=== PATIENT | male | born 1950 | race African-American/Black ===

== ENCOUNTER 2017-04-14 16:34 | Inpatient (IN) | payer OTHER ==
[~2017-04-14] VITALS: Ht 175.3 cm; Wt 96.9 kg
--- NOTE | 2017-04-14 18:36 | DIAGNOSTIC IMAGING REPORT ---
CHEST ONE VIEW PORTABLE CLINICAL HISTORY: Shortness of breath COMPARISON STUDY: No previous studies for comparison. FINDINGS: The heart is borderline enlarged. There is no failure. There is no focal pulmonary consolidation. There are no pleural effusions.[ IMPRESSION: No active disease in the chest. Electronically signed by: Sebastián Gabriel M.D. 04/14/2017 6:34 PM Dictated Date/Time: 04/14/2017 6:34 PM
[2017-04-14] MEDS ORDERED: PYRI100T4 PO (18:49)
[2017-04-14] MEDS ORDERED: METO25TA56 PO (18:49)
[2017-04-14] MEDS ORDERED: CYAN100048 SQ (18:49)
[2017-04-14] MEDS ORDERED: ACET325T96 PO (18:49)
[2017-04-14] MEDS ORDERED: [UNRECOGNIZED DRUG - CODE] INJ (18:49)
[2017-04-14] MEDS ORDERED: FURO20TA PO (18:49)
[2017-04-14] MEDS ORDERED: EPGI40M SQ (18:49)
[2017-04-14] MEDS ORDERED: TAMS0.4C38 PO (18:58)
[2017-04-14 19:11] LABS: BASO % 0.3 %; BASO ABS # 0.06 K/uL (0-0.2); EOS % 1.2 %; HEMATOCRIT 22.9 % (42-52); IG% 1.5 %; LYMPH % 13.2 %; LYMPH ABS # 2.55 K/uL (1.2-3.4); MEAN CELL VOLUME 107.5 fL (80-100); MEAN CORPUSCULAR HEMOGLOBIN 35.7 pg (25-34); MEAN CORPUSCULAR HGB CONC 33.2 g/dl (32-36); MEAN PLATELET VOLUME 10.3 fL (7.4-10.4); MONO % 2.7 %; NEUT % 81.1 %; PLATELET COUNT 428 K/uL (130-400); RED BLOOD COUNT 2.13 M/uL (4.7-6.1); WHITE BLOOD COUNT 19.35 K/uL (4.8-10.8)
[2017-04-14 19:16] LABS: BUN/CREATININE RATIO 14.8 (10-20); CALCIUM 8.8 mg/dl (8.5-10.1); CREATININE 0.84 mg/dl (0.60-1.40); POTASSIUM 3.9 mmol/L (3.5-5.1)
[2017-04-14 19:22] LABS: INR 1.1 (0.9-1.1); PARTIAL THROMBOPLASTIN RATIO 0.9; PROTHROMBIN TIME (PATIENT) 11.5 SECONDS (9.0-12.0)
--- NOTE | 2017-04-14 19:22 | EMERGENCY ROOM VISIT NOTE ---
History Report prepared by Sheri: Viktoriya Beltran Under the Supervision of: Dr. Owen Hurt M.D. First contact with patient: 18:12 Chief Complaint: ABNORMAL LABS Stated Complaint: ANEMIA History of Present Illness The patient is a 66 year old male who presents to the Emergency Room after having abnormal lab testing two days ago. The patient is currently incarcerated. Per notes from senior living, the patient was seen today by Dr. Wolff of oncology for an oncology review. The patient has a history of MDS, COPD, and CHF. He is dependent on EPO and Neupogen twice weekly. [place] WBC was 92501, platelets were 466, and hemoglobin was 7.4. He was sent to the ED for a possible transfusion. The patient states that he has had transfusions in the past. He denies fevers or rectal bleeding or black stool. He does report feeling lightheaded recently. He does complain of some shortness of breath but denies any chest discomfort. Source of History: patient, treating provider Onset: PST MANAGER Position: other (global) Symptom Intensity: hemoglobin 7.4 Timing: constant Associated Symptoms: + SOB, No fevers, No chest pain, No abdominal pain, No melena, No hematochezia Note: Pt notes lightheadedness. Pt denies rectal bleeding. Review of Systems See HPI for pertinent positives & negatives. A total of 10 systems reviewed and were otherwise negative. Past Medical & Surgical Medical Problems: (1) CHF (congestive heart failure) (2) COPD (chronic obstructive pulmonary disease) (3) MDS (myelodysplastic syndrome) Family History No pertinent history stated. Social History Smoking Status: Never Smoker Housing Status: other (incarcerated) Occupation Status: other (incarcerated) Current/Historical Medications Scheduled Cyanocobalamin (Vitamin B-12), 1,000 MCG SQ MONTHLY Epoetin Berto (Procrit), 40,000 UNITS SQ WK Filgrastim (Neupogen), 480 MCG INJ 2XWK Furosemide (Lasix), 20 MG PO DAILY Metoprolol Tartrate (Lopressor) (Lopressor), 25 MG PO BID Pyridoxine (Vitamin B6), 200 MG PO DAILY Tamsulosin Hcl (Flomax), 0.4 MG PO PM Scheduled PRN Acetaminophen Tab (Tylenol), 650 MG PO TID PRN for Allergies Coded Allergies: No Known Allergies (Unverified , 04/14/17) Physical Exam Vital Signs Date Time Temp Pulse Resp B/P (MAP) Pulse Ox O2 Delivery O2 Flow Rate FiO2 04/14/17 19:06 72 04/14/17 18:36 78 16 121/56 98 Room Air 04/14/17 16:49 37.0 80 20 147/81 98 Room Air Physical Exam Constitutional: Vital signs reviewed. Eyes: Pupils are equal round reactive to light. Conjunctiva are noninjected. ENT: Pharynx is clear without erythema or exudate. Mucous membranes are moist. Neck supple without meningeal signs. Respiratory: Clear to auscultation bilaterally. Breath sounds are equal bilaterally. Cardiovascular: Regular rate and rhythm. No rubs or gallops. GI: Soft, nondistended and nontender. Bowel sounds are present. Musculoskeletal: No peripheral edema. No lower extremity tenderness. Integumentary: No cyanosis. Neurological: The patient is awake and alert. No focal deficits. Psychiatric: Normal affect. Medical Decision & Procedures ER Provider Diagnostic Interpretation: Radiology results as stated below per my review and the radiologist's interpretation: CHEST ONE VIEW PORTABLE CLINICAL HISTORY: Shortness of breath COMPARISON STUDY: No previous studies for comparison. FINDINGS: The heart is borderline enlarged. There is no failure. There is no focal pulmonary consolidation. There are no pleural effusions.[ IMPRESSION: No active disease in the chest. Electronically signed by: Sebastián Gabriel M.D. 04/14/2017 6:34 PM Dictated Date/Time: 04/14/2017 6:34 PM Laboratory Results 04/14/17 18:20 Red Blood Count 2.13, Mean Corpuscular Volume 107.5, Mean Corpuscular Hemoglobin 35.7, Mean Corpuscular Hemoglobin Concent 33.2, Mean Platelet Volume 10.3, Neutrophils (%) (Auto) 81.1, Lymphocytes (%) (Auto) 13.2, Monocytes (%) ( Auto) 2.7, Eosinophils (%) (Auto) 1.2, Basophils (%) (Auto) 0.3, Neutrophils # ( Auto) 15.69, Lymphocytes # (Auto) 2.55, Monocytes # (Auto) 0.53, Eosinophils # ( Auto) 0.23, Basophils # (Auto) 0.06 04/14/17 18:20 Test 04/14/17 18:04/14/17 18:37 White Blood Count 19.35 K/uL (4.8-10.8) Red Blood Count 2.13 M/uL (4.7-6.1) Hemoglobin 7.6 g/dL (14.0-18.0) Hematocrit 22.9 % (42-52) Mean Corpuscular Volume 107.5 fL (80-100) Mean Corpuscular Hemoglobin 35.7 pg (25-34) Mean Corpuscular Hemoglobin Concent 33.2 g/dl (32-36) Platelet Count 428 K/uL (130-400) Mean Platelet Volume 10.3 fL (7.4-10.4) Neutrophils (%) (Auto) 81.1 % Lymphocytes (%) (Auto) 13.2 % Monocytes (%) (Auto) 2.7 % Eosinophils (%) (Auto) 1.2 % Basophils (%) (Auto) 0.3 % Neutrophils # (Auto) 15.69 K/uL (1.4-6.5) Lymphocytes # (Auto) 2.55 K/uL (1.2-3.4) Monocytes # (Auto) 0.53 K/uL (0.11-0.59) Eosinophils # (Auto) 0.23 K/uL (0-0.5) Basophils # (Auto) 0.06 K/uL (0-0.2) RDW Standard Deviation 83.0 fL (36.4-46.3) RDW Coefficient of Variation 23.2 % (11.5-14.5) Immature Granulocyte % (Auto) 1.5 % Immature Granulocyte # (Auto) 0.29 K/uL (0.00-0.02) Nucleated RBC Absolute Count (auto) 0.09 K/uL (0-0) Nucleated Red Blood Cells % 0.5 % Anion Gap 4.0 mmol/L (3-11) Est Creatinine Clear Calc Drug Dose 98.0 ml/min Estimated GFR () 105.0 Estimated GFR (Non- 90.6 BUN/Creatinine Ratio 14.8 (10-20) Calcium Level 8.8 mg/dl (8.5-10.1) Total Bilirubin 1.0 mg/dl (0.2-1) Direct Bilirubin 0.3 mg/dl (0-0.2) Aspartate Amino Transf (AST/SGOT) 10 U/L (15-37) Alanine Aminotransferase (ALT/SGPT) 16 U/L (12-78) Alkaline Phosphatase 63 U/L (45-117) Pro-B-Type Natriuretic Peptide 588 pg/ml (0-900) Total Protein 7.4 gm/dl (6.4-8.2) Albumin 4.0 gm/dl (3.4-5.0) Bedside Troponin I < 0.030 ng/ml (0-0.045) Laboratory results as reviewed by me. ECG Indication: SOB/dyspnea Rate (beats per minute): 74 Rhythm: normal sinus Findings: no acute ischemic change, no ectopy ED Course 1811: The patient was evaluated in room C8. A complete history and physical exam was performed. 1826: I spoke with GUERRERO Echeverria. We discussed the patients case. The patient will be evaluated by the [facility] for further management. 1831: I reassessed the patient at this time. He is feeling better and resting comfortably. I discussed the results and treatment plan with the patient. I answered all pertaining questions that he had. He expressed understanding and verbalized agreement. Medical Decision This is a 66-year-old male who presents with abnormal test results and shortness of breath. Differential diagnosis includes CHF exacerbation, COPD exacerbation, pneumonia, anemia, pancytopenia. I did perform a limited focused review of portions of the patient's old chart on the electronic medical record. The patient has had no prior visits to this hospital. I did evaluate the patient as noted above. The patient is presenting here with abnormal test results. I did review the test results from the present. There were drawn 2 days ago. He has a hemoglobin of 7.4. He has had myelodysplastic syndrome and is on erythropoietin as well as Neupogen. He does complain of some shortness of breath. IV access was established. The patient was placed on a continuous senior network security engineer. I did order and personally review the patient' s 12-lead EKG and chest x-ray as described above. I did order and review the patient's blood work as noted in the electronic medical record. His hemoglobin is 7.6. He does have symptomatic anemia likely need transfusion. I did discuss the case with the hospitalist and disability case manager. Medication Reconcilliation Current Medication List: was personally reviewed by me Blood Pressure Screening Patient's blood pressure: Elevated blood pressure Blood pressure disposition: Referred to PCP Consults Time Called: 1823 Consulting Physician: GUERRERO Echeverria Returned Call: 1826 I spoke with GUERRERO Echeverria. We discussed the patients case. The patient will be evaluated by the [facility] for further management. Impression Primary Impression: Symptomatic anemia Additional Impressions: Dyspnea MDS (myelodysplastic syndrome) Scribe Attestation The scribe's documentation has been prepared under my direct and personally reviewed by me in its entirety. I confirm that the note above accurately reflects all work, treatment, procedures, and medical decision making performed by me. Departure Information Dispostion Being Evaluated By Hospitalist Patient Instructions My [facility] Problem Qualifiers Additional Impressions: Dyspnea Dyspnea type: dyspnea on exertion Qualified Codes: R06.09 - Other forms of dyspnea
[2017-04-14 19:41] LABS: ANISOCYTOSIS PRESENT; COMPLETE YES; OVALOCYTES 1+; SCHISTOCYTES OCCASIONAL; TEAR DROP CELLS 1+
[2017-04-14] MEDS ORDERED: TRAMADOL HCL 50 MG TAB PO PRN (21:15)
[2017-04-14] MEDS ORDERED: ACETAMINOPHEN 325 MG TAB PO PRN (21:15)
[2017-04-14] MEDS ORDERED: ONDANSETRON INJ 2 MG/ML 2 ML VIAL IV PRN (21:15)
[2017-04-14 23:45] VITALS: BP 137/71; PULSE 74; TEMP 36.8; O2SAT 98; Ht 175.3 cm; Wt 96.9 kg
[2017-04-14 23:59] VITALS: BP 109/67; PULSE 76; TEMP 37; O2SAT 96
[2017-04-15] VITALS (16 sets, daily range): BP systolic 103–129; BP diastolic 63–74; PULSE 68–79; TEMP 36.8–37.2; O2SAT 95–98
[2017-04-15] MEDS ORDERED: INFLUENZA VIRUS QUAD VACCINE 0.5 ML SYR IM. ONE (01:45)
[2017-04-15] MEDS ORDERED: INFLUENZA ADMINISTRATION CHARGE ONE (01:45)
--- NOTE | 2017-04-15 04:18 | HISTORY & PHYSICAL EXAMINATION ---
DATE OF ADMISSION: 04/14/2017 PRIMARY CARE PHYSICIAN: EMELINA Bailey. CHIEF COMPLAINT: Anemia. HISTORY OF PRESENT ILLNESS: History obtained from patient and records. Medical history significant for myelodysplastic syndrome, chronic anemia, (baseline hemoglobin of 8.8 to 9.8), hypertension, BPH, reflux. A few days ago, the patient had routine outpatient lab work for myelodysplastic syndrome. Hemoglobin noted to be 7.4. Patient admits to some shortness of breath on exertion. Denies black bloody stools or abdominal pain. [facility]cult done at the [facility] was negative as per patient. Patient sent to the Emergency Room for possible blood transfusion. MEDICAL HISTORY: As above. SURGERIES: None. HOME MEDICATIONS: Include Flomax, vitamin B12, Procrit, Neupogen, Lasix, Lopressor, Tylenol. ALLERGIES: No known drug allergies. FAMILY HISTORY: Hypertension. PERSONAL AND SOCIAL HISTORY: nonsmoker, no chronic intake of alcoholic beverages, inmate. -[place] ethnicity. REVIEW OF SYSTEMS: As per HPI, all 10 systems reviewed. All other ROS negative. PHYSICAL EXAMINATION: VITAL SIGNS: Blood pressure was noted to be 170/80, later 107/71, pulse rate of 74, RR 18, temperature 37 O2 96RA. GENERAL: Comfortable, pleasant, looks younger for stated age. SKIN: Pallor, warm. HEENT: Pale palpebral conjunctive . No ptosis. Dry buccal mucosa. NECK: No JVD. Supple. No tenderness. CHEST: Clear to auscultation. No tenderness. HEART: Regular rate and rhythm, no murmur. ABDOMEN: Soft, nontender. EXTREMITIES: No edema. No gross deformities. No tenderness. NEUROLOGIC: Coherent. No gross focality. LABORATORY DATA: Hemoglobin was noted to be 7.6, hematocrit 22.1, white count 19, platelet count 428 . Sodium 136, potassium 3.6, chloride 104, CO2 28, BUN 12, creatinine 0.8, glucose was noted to be 80. Troponin 0 Chest x-ray showed no active disease. EKG as per my interpretation rate 75, normal sinus rhythm, no ischemia. ASSESSMENT: 1. Symptomatic anemia secondary to hemoglobin drop from baseline history of myelodysplastic syndrome. 2. Hypertension, stable. 3. Benign prostatic hypertrophy, stable on medication. PLAN: GMF transfuse packed RBCs to maintain hemoglobin greater than 8.5. Home tomorrow morning if hemoglobin stable. DVT prophylaxis, SCDs RE anemia Full code. MTDD
[2017-04-15 08:36] LABS: BASO % 0.3 %; BASO ABS # 0.06 K/uL (0-0.2); EOS % 0.8 %; IG% 1.2 %; LYMPH % 10.8 %; LYMPH ABS # 2.25 K/uL (1.2-3.4); MEAN CELL VOLUME 102.7 fL (80-100); MEAN CORPUSCULAR HEMOGLOBIN 34.6 pg (25-34); MEAN CORPUSCULAR HGB CONC 33.7 g/dl (32-36); MEAN PLATELET VOLUME 9.8 fL (7.4-10.4); MONO % 1.8 %; NEUT % 85.1 %; PLATELET COUNT 344 K/uL (130-400); RED BLOOD COUNT 2.63 M/uL (4.7-6.1); WHITE BLOOD COUNT 20.84 K/uL (4.8-10.8)
[2017-04-15] MEDS ORDERED: FUROSEMIDE 20 MG TAB PO SCH (09:00)
[2017-04-15] MEDS ORDERED: PYRIDOXINE HCL 50 MG TAB PO SCH (09:00)
[2017-04-15] MEDS ORDERED: METOPROLOL TARTRATE 25 MG TAB PO SCH (09:00)
[2017-04-15 09:29] LABS: ANISOCYTOSIS PRESENT; COMPLETE YES; GIANT PLATELETS 1+; HYPOCHROMIA PRESENT; OVALOCYTES 1+; POLYCHROMASIA 1+
--- NOTE | 2017-04-15 11:02 | Progress Note ---
Medicine Progress Note Date & Time of Visit: Apr 15, 2017 at 10:49. Subjective Pt was seen and examined Lying in bed with no distress Pt said that he feels much better Denies any chest pain, palpitation, dizziness and SOB Objective Last 8 Hrs Date Time Temp Pulse Resp B/P (MAP) Pulse Ox O2 Delivery O2 Flow Rate FiO2 04/15/17 07:13 37.2 68 18 116/71 96 04/15/17 07:00 96 Room Air 04/15/17 06:26 37.0 72 18 116/71 96 04/15/17 05:30 36.9 79 18 116/69 97 04/15/17 05:00 37.0 69 18 113/67 97 04/15/17 04:45 36.9 69 18 119/69 97 04/15/17 04:30 36.9 68 18 110/67 97 04/15/17 04:15 37.0 68 18 113/74 95 04/15/17 04:14 36.8 68 16 109/68 (82) 97 Room Air Physical Exam: General- No acute distress Head- atraumatic Eyes- PERRL, EOMI ENT- oropharynx clear Neck- supple, no JVD Lungs- clear to auscultation Heart- regular rhythm; no murmur Abdomen- normal bowel sounds, soft Extremities- no pretibial edema, no calf tenderness Neuro- alert, oriented x 3; PERRL, EOMI; no facial palsy Skin- warm & dry Laboratory Results: Last 24 Hours Test 04/14/17 18:20 04/14/17 18:37 04/15/17 08:22 White Blood Count 19.35 K/uL 20.84 K/uL Red Blood Count 2.13 M/uL 2.63 M/uL Hemoglobin 7.6 g/dL 9.1 g/dL Hematocrit 22.9 % 27.0 % Mean Corpuscular Volume 107.5 fL 102.7 fL Mean Corpuscular Hemoglobin 35.7 pg 34.6 pg Mean Corpuscular Hemoglobin Concent 33.2 g/dl 33.7 g/dl Platelet Count 428 K/uL 344 K/uL Mean Platelet Volume 10.3 fL 9.8 fL Neutrophils (%) (Auto) 81.1 % 85.1 % Lymphocytes (%) (Auto) 13.2 % 10.8 % Monocytes (%) (Auto) 2.7 % 1.8 % Eosinophils (%) (Auto) 1.2 % 0.8 % Basophils (%) (Auto) 0.3 % 0.3 % Neutrophils # (Auto) 15.69 K/uL 17.72 K/uL Lymphocytes # (Auto) 2.55 K/uL 2.25 K/uL Monocytes # (Auto) 0.53 K/uL 0.38 K/uL Eosinophils # (Auto) 0.23 K/uL 0.17 K/uL Basophils # (Auto) 0.06 K/uL 0.06 K/uL RDW Standard Deviation 83.0 fL 83.4 fL RDW Coefficient of Variation 23.2 % 23.9 % Immature Granulocyte % (Auto) 1.5 % 1.2 % Immature Granulocyte # (Auto) 0.29 K/uL 0.26 K/uL Nucleated RBC Absolute Count (auto) 0.09 K/uL 0.07 K/uL Nucleated Red Blood Cells % 0.5 % 0.3 % Anisocytosis PRESENT PRESENT Macrocytosis PRESENT Tear Drop Cells 1+ Ovalocytes 1+ 1+ Schistocytes OCCASIONAL Prothrombin Time 11.5 SECONDS Prothromb Time International Ratio 1.1 Activated Partial Thromboplast Time 23.6 SECONDS Partial Thromboplastin Ratio 0.9 Sodium Level 136 mmol/L Potassium Level 3.9 mmol/L Chloride Level 104 mmol/L Carbon Dioxide Level 28 mmol/L Anion Gap 4.0 mmol/L Blood Urea Nitrogen 12 mg/dl Creatinine 0.84 mg/dl Est Creatinine Clear Calc Drug Dose 98.0 ml/min Estimated GFR () 105.0 Estimated GFR (Non- 90.6 BUN/Creatinine Ratio 14.8 Random Glucose 80 mg/dl Calcium Level 8.8 mg/dl Total Bilirubin 1.0 mg/dl Direct Bilirubin 0.3 mg/dl Aspartate Amino Transf (AST/SGOT) 10 U/L Alanine Aminotransferase (ALT/SGPT) 16 U/L Alkaline Phosphatase 63 U/L Pro-B-Type Natriuretic Peptide 588 pg/ml Total Protein 7.4 gm/dl Albumin 4.0 gm/dl Bedside Troponin I < 0.030 ng/ml Giant Platelets 1+ Polychromasia 1+ Hypochromasia PRESENT Basophilic Stippling 1+ Date/Time Source Procedure Growth Status 04/15/17 00:15 Nasal MRSA DNA Surveillance Screen - Final Specimen Negative for MRSA by DNA Probe Complete Assessment & Plan Symptomatic Anemia Present with SOB with Hb 7.6 Hx of Myelodysplastic anemia Received 2 units PRBC Hb today 9.1 Clinically improved significantly Will check h/h at 1600, if stable will discharge today MDS WBC 20 Continue follow with Oncology Continue outpatient epogen Continue monitor CBC Hypertension Continue metoprolol and lasix stable. Benign prostatic hypertrophy On Flomax DVT prophylaxis SCDs due to anemia low hgb CODE STATUS Full code. Current Inpatient Medications: Current Inpatient Medications Medications (Trade) Dose Ordered Sig/Patricia Route Start Time Stop Time Status Last Admin Dose Admin Acetaminophen (Tylenol Tab) 650 mg Q4H PRN PO 04/14/17 21:15 05/14/17 21:14 Ondansetron HCl (Zofran Inj) 4 mg Q6H PRN IV 04/14/17 21:15 05/14/17 21:14 Tramadol HCl (Ultram Tab) 25 mg Q6H PRN PO 04/14/17 21:15 05/14/17 21:14 Furosemide (Lasix Tab) 20 mg DAILY PO 04/15/17 09:00 05/15/17 08:59 04/15/17 08:05 20 MG Metoprolol Tartrate (Lopressor Tab) 25 mg BID PO 04/15/17 09:00 05/15/17 08:59 04/15/17 08:05 25 MG Pyridoxine HCl (Vitamin B-6 Tab) 200 mg DAILY PO 04/15/17 09:00 05/15/17 08:59 04/15/17 08:05 200 MG Tamsulosin HCl (Flomax Cap) 0.4 mg PM PO 04/15/17 21:00 05/15/17 20:59 Miscellaneous Information (Order Awaiting Action) 1 ea QS N/A 04/15/17 00:00 05/15/17 00:00
[2017-04-15 16:10] LABS: HEMATOCRIT 27.4 % (42-52)
--- NOTE | 2017-04-15 17:45 | Discharge Instructions ---
Discharge Instructions Date of Service Apr 15, 2017. Admission Reason for Admission: Symptomatic Anemia Discharge Discharge Diagnosis / Problem: Anemia Discharge Goals Goal(s): Decrease discomfort, Improve function, Improve disease control Activity Recommendations Activity Limitations: resume your previous activity (as tolerated) . Instructions / Follow-Up Instructions / Follow-Up Follow up with primary care provider Check CBC within 1 week Current Hospital Diet Patient's current hospital diet: AHA Diet (Heart Healthy) Discharge Diet Recommended Diet: AHA Diet (Heart Healthy) Pending Studies Studies pending at discharge: no Medical Emergencies . Who to Call and When: Medical Emergencies: If at any time you feel your situation is an emergency, please call 911 immediately. . Non-Emergent Contact Non-Emergency issues call your: Primary Care Provider Call Non-Emergent contact if: you have any medication questions . . "Provider Documentation" section prepared by Juhi Cotter. . VTE Core Measure Inpt VTE Proph given/why not?: SCD's
[2017-04-15] MEDS ORDERED: TAMSULOSIN HCL 0.4 MG CAP PO SCH (21:00)
--- NOTE | 2017-04-16 07:38 | Discharge Summary ---
Discharge Summary Date of Service Apr 16, 2017. Discharge Summary Admission Date: Apr 14, 2017 at 20:51 Discharge Date: Apr 15, 2017 Principal Diagnosis: Anemia Secondary Diagnoses/Problems: Benign prostatic hypertrophy MDS HTN Procedures: CHEST ONE VIEW PORTABLE CLINICAL HISTORY: Shortness of breath COMPARISON STUDY: No previous studies for comparison. FINDINGS: The heart is borderline enlarged. There is no failure. There is no focal pulmonary consolidation. There are no pleural effusions.[ IMPRESSION: No active disease in the chest. Electronically signed by: Sebastián Gabriel M.D. 04/14/2017 6:34 PM Dictated Date/Time: 04/14/2017 6:34 PM Medication Reconciliation Continued Medications: Acetaminophen Tab (Tylenol) 325 Mg Tab 650 MG PO TID PRN for , TAB Cyanocobalamin (Vitamin B-12) 1,000 Mcg Sub 1000 MCG SQ MONTHLY Epoetin Berto (Procrit) 40,000 [place] 61337 UNITS SQ WK THDAY Filgrastim (Neupogen) 480 Mcg/0.8 Ml Inj 480 MCG INJ 2XWK fri, Furosemide (Lasix) 20 Mg Tab 20 MG PO DAILY, TAB Metoprolol Tartrate (Lopressor) (Lopressor) 25 Mg Tab 25 MG PO BID, TAB Pyridoxine (Vitamin B6) 100 Mg Tab 200 MG PO DAILY, TAB Tamsulosin Hcl (Flomax) 0.4 Mg Cap 0.4 MG PO PM, CAP Admission Information HPI (per Admitting provider): CHIEF COMPLAINT: Anemia. HISTORY OF PRESENT ILLNESS: History obtained from patient and records. Medical history significant for myelodysplastic syndrome, chronic anemia, (baseline hemoglobin of 8.8 to 9.8), hypertension, BPH, reflux. A few days ago, the patient had routine outpatient lab work for myelodysplastic syndrome. Hemoglobin noted to be 7.4. Patient admits to some shortness of breath on exertion. Denies black bloody stools or abdominal pain. Hemoccult done at the detention was negative as per patient. Patient sent to the Emergency Room for possible blood transfusion. Physical Exam (per Admitting): PHYSICAL EXAMINATION: VITAL SIGNS: Blood pressure was noted to be 170/80, later 107/71, pulse rate of 74, RR 18, temperature 37 O2 96RA. GENERAL: Comfortable, pleasant, looks younger for stated age. SKIN: Pallor, warm. HEENT: Pale palpebral conjunctive . No ptosis. Dry buccal mucosa. NECK: No JVD. Supple. No tenderness. CHEST: Clear to auscultation. No tenderness. HEART: Regular rate and rhythm, no murmur. ABDOMEN: Soft, nontender. EXTREMITIES: No edema. No gross deformities. No tenderness. NEUROLOGIC: Coherent. No gross focality Hospital Course Symptomatic Anemia Present with SOB with Hb 7.6 Hx of Myelodysplastic anemia Received 2 units PRBC Hb today 9.1 Clinically improved significantly Will check h/h at 1600, if stable will discharge today MDS WBC 20 Continue follow with Oncology Continue outpatient epogen Continue monitor CBC Hypertension Continue metoprolol and lasix stable. Benign prostatic hypertrophy On Flomax DVT prophylaxis SCDs due to anemia low hgb CODE STATUS Full code. Total time spent on discharge = 35 minutes This includes examination of the patient, discharge planning, medication reconciliation, and communication with other providers. Discharge Instructions Discharge Instructions Date of Service Apr 15, 2017. Admission Reason for Admission: Symptomatic Anemia Discharge Discharge Diagnosis / Problem: Anemia Discharge Goals Goal(s): Decrease discomfort, Improve function, Improve disease control Activity Recommendations Activity Limitations: resume your previous activity (as tolerated) . Instructions / Follow-Up Instructions / Follow-Up Follow up with primary care provider Check CBC within 1 week Current Hospital Diet Patient's current hospital diet: AHA Diet (Heart Healthy) Discharge Diet Recommended Diet: AHA Diet (Heart Healthy) Pending Studies Studies pending at discharge: no Medical Emergencies . Who to Call and When: Medical Emergencies: If at any time you feel your situation is an emergency, please call 911 immediately. . Non-Emergent Contact Non-Emergency issues call your: Primary Care Provider Call Non-Emergent contact if: you have any medication questions . . "Provider Documentation" section prepared by Juhi Cotter. . VTE Core Measure Inpt VTE Proph given/why not?: SCD's
== END 2017-04-15 19:43 | disposition home or self-care (01) | DRG 812 ==
LOC: C.EDB 16:37 → C.MED 20:51 → ENRESERV 21:00 → EDBEDREQ 23:05
PROVIDERS: ADMIT Internal Medicine; ATTEND Internal Medicine
DX: D46.9 Myelodysplastic syndrome, unspecified (principal); I11.0 Hypertensive heart disease with heart failure; I50.9 Heart failure, unspecified; J44.9 Chronic obstructive pulmonary disease, unspecified; N40.0 Benign prostatic hyperplasia without lower urinary tract symptoms; K21.9 Gastro-esophageal reflux disease without esophagitis; Z79.899 Other long term (current) drug therapy

== ENCOUNTER 2017-05-18 18:35 | Inpatient (IN) | payer OTHER ==
[~2017-05-18] VITALS: Ht 175.3 cm; Wt 105.0 kg
[~2017-05-18 18:35] MED LIST: ACET325T96 PO; CYAN100048 SQ; EPGI40M SQ; FURO20TA PO; METO25TA56 PO; PYRI100T4 PO; TAMS0.4C38 PO; [UNRECOGNIZED DRUG - CODE] INJ
[2017-05-18] MEDS ORDERED: SODIUM CHLORIDE 0.9% 1000ML 1,000 ML IV STA (19:09)
--- NOTE | 2017-05-18 19:32 | DIAGNOSTIC IMAGING REPORT ---
CHEST ONE VIEW PORTABLE CLINICAL HISTORY: Weakness. COMPARISON STUDY: Chest radiograph April 14, 2017. FINDINGS: Lung volumes are normal. No pneumothorax or pleural effusion is identified. There is no evidence of pulmonary edema. There is mild cardiomegaly. No consolidation is identified. IMPRESSION: No acute cardiopulmonary findings. Electronically signed by: Vincent Maldonado M.D. 05/18/2017 7:31 PM Dictated Date/Time: 05/18/2017 7:30 PM
[2017-05-18 19:57] LABS: ALBUMIN 3.8 gm/dl (3.4-5.0); CALCIUM 8.6 mg/dl (8.5-10.1); CREATININE 0.83 mg/dl (0.60-1.40); POTASSIUM 3.7 mmol/L (3.5-5.1)
[2017-05-18 20:00] LABS: TOTAL PROTEIN 7.3 gm/dl (6.4-8.2)
[2017-05-18 20:02] LABS: HEMATOCRIT 24.2 % (42-52); HEMOGLOBIN 8.1 g/dL (14.0-18.0); MEAN CELL VOLUME 102.5 fL (80-100); MEAN CORPUSCULAR HEMOGLOBIN 34.3 pg (25-34); MEAN CORPUSCULAR HGB CONC 33.5 g/dl (32-36); MEAN PLATELET VOLUME 8.9 fL (7.4-10.4); NUCLEATED RED BLOOD CELL ABS 0.05 K/uL (0-0); PLATELET COUNT 466 K/uL (130-400); RED CELL DISTRIBUTION WIDTH CV 22.8 % (11.5-14.5); RED CELL DISTRIBUTION WIDTH SD 79.2 fL (36.4-46.3); WHITE BLOOD COUNT 2.59 K/uL (4.8-10.8)
--- NOTE | 2017-05-18 20:08 | EMERGENCY ROOM VISIT NOTE ---
History Report prepared by Sheri: kC Ovalle Under the Supervision of: Dr. Nathaniel Peacock M.D. First contact with patient: 19:03 Chief Complaint: OTHER COMPLAINT Stated Complaint: LOW HEMOGLOBIN, NEEDS POSSIBLE BLOOD TRANSFUSION History of Present Illness The patient is a 66 year old male who presents to the Emergency Room with complaints of decreasing hemoglobin beginning a couple of week sago. The patient reports a history of Myelodysplastic syndrome with associated anemia and neutropenia. He reports he is on Procrit and Neupogen. The patient states that he had a hemoglobin count of less than 8 a couple weeks ago and was sent here for a transfusion. He reports that his hemoglobin count has been declining from 9 to 7.4 since. The patient states that he has been experiencing fatigue, right lower quadrant abdominal pain, and shortness of breath upon exertion. He denies blood in stool, nausea, and vomiting. Source of History: patient Onset: a couple of weeks ago Position: other (global) Quality: other (7.4) Timing: other (decreasing) Modifying Factors (Relieving): other (Procrit, neupogen) Associated Symptoms: + SOB, + abdominal pain, + fatigue, No nausea, No vomiting, No melena, No hematochezia Review of Systems See HPI for pertinent positives and negatives. A total of ten systems were reviewed and were otherwise negative. Past Medical & Surgical Medical Problems: (1) CHF (congestive heart failure) (2) COPD (chronic obstructive pulmonary disease) (3) MDS (myelodysplastic syndrome) (4) Symptomatic anemia (5) Symptomatic anemia Family History Patient reports no known family medical history. Social History Smoking Status: Never Smoker Housing Status: other Occupation Status: other Current/Historical Medications Scheduled Cyanocobalamin (Vitamin B-12), 1,000 MCG SQ MONTHLY Epoetin Berto (Procrit), 40,000 UNITS SQ WK Furosemide (Lasix), 20 MG PO DAILY Metoprolol Tartrate (Lopressor) (Lopressor), 25 MG PO BID Pyridoxine (Vitamin B6), 200 MG PO DAILY Tamsulosin Hcl (Flomax), 0.4 MG PO PM Scheduled PRN Acetaminophen Tab (Tylenol), 650 MG PO TID PRN for Allergies Coded Allergies: No Known Allergies (Unverified , 05/18/17) Physical Exam Vital Signs Date Time Temp Pulse Resp B/P (MAP) Pulse Ox O2 Delivery O2 Flow Rate FiO2 05/18/17 20:11 64 18 121/62 97 Room Air 05/18/17 18:37 36.3 74 20 142/75 100 Room Air Physical Exam GENERAL: Awake, alert, fatigued-appearing, in no distress HENT: Normocephalic, atraumatic. Dry mucous membranes. EYES: Pale conjunctiva. Sclera non-icteric. NECK: Supple. No nuchal rigidity. FROM. No JVD. RESPIRATORY: Clear to auscultation. CARDIAC: Regular rate, normal rhythm. Extremities warm and well perfused. Pulses equal. ABDOMEN: Soft, non-distended. No tenderness to palpation. No rebound or guarding. No masses. RECTAL: Deferred. MUSCULOSKELETAL: Chest examination reveals no tenderness. The back is symmetrical on inspection without obvious abnormality. There is no CVA tenderness to palpation. No joint edema. LOWER EXTREMITIES: Calves are equal size bilaterally and non-tender. No edema. No discoloration. NEURO: Normal sensorium. No sensory or motor deficits noted. SKIN: No rash or jaundice noted. Medical Decision & Procedures ER Provider Diagnostic Interpretation: X-ray: Per my interpretation, radiologist review. CHEST ONE VIEW PORTABLE CLINICAL HISTORY: Weakness. COMPARISON STUDY: Chest radiograph April 14, 2017. FINDINGS: Lung volumes are normal. No pneumothorax or pleural effusion is identified. There is no evidence of pulmonary edema. There is mild cardiomegaly. No consolidation is identified. IMPRESSION: No acute cardiopulmonary findings. Electronically signed by: Vincent Maldonado M.D. 05/18/2017 7:31 PM Dictated Date/Time: 05/18/2017 7:30 PM Laboratory Results 05/18/17 19:25 Test 05/18/17 19:25 Variant Lymphocytes % (manual) 20.7 % Absolute Variant Lymphocytes 0.54 K/uL Blood Smear Review Schistocytes 1+ Anion Gap 3.0 mmol/L (3-11) Est Creatinine Clear Calc Drug Dose 98.7 ml/min Estimated GFR () 105.5 Estimated GFR (Non- 91.0 BUN/Creatinine Ratio 13.3 (10-20) Calcium Level 8.6 mg/dl (8.5-10.1) Total Bilirubin 1.2 mg/dl (0.2-1) Direct Bilirubin 0.3 mg/dl (0-0.2) Aspartate Amino Transf (AST/SGOT) 11 U/L (15-37) Alanine Aminotransferase (ALT/SGPT) 17 U/L (12-78) Alkaline Phosphatase 52 U/L (45-117) Total Protein 7.3 gm/dl (6.4-8.2) Albumin 3.8 gm/dl (3.4-5.0) Lipase 171 U/L (73-393) Laboratory results reviewed by me Medications Administered Medications (Trade) Dose Ordered Sig/Patricia Route Start Time Stop Time Status Last Admin Dose Admin Sodium Chloride 1,000 ml @ 999 mls/hr Q1H1M STAT IV 05/18/17 19:09 05/18/17 20:09 DC 05/18/17 20:27 999 MLS/HR ED Course 1904: The patient was evaluated in room C01B. A complete history and physical exam was performed. 2020: I reevaluated the patient and updated him on his results. I discussed the treatment plan, which he understands and agrees to. The patient will be further evaluated. 2027: I [facility] the patients [facility] understands the patients condition and agrees to accept the patient. The patient will be further evaluated. Medical Decision I reviewed the patient's past medical history, medications, and the nursing notes as described above. The patient's presentation and history were concerning for Anemia due to chronic disease/malignancy, Myelodysplastic worsening syndrome, pneumonia, UTI, dehydration, and electrolyte abnormalities. Patient is a 66-year-old gentleman with a past medical history of myelodysplastic syndrome and associated anemia on Procrit and Neupogen presents to emergency department from [facility] after having surveillance labs showing a hemoglobin of 7.7 down from 9 after being transfused 2 weeks ago in the ED per hpi. The patient is no acute distress, afebrile with stable vital signs. Denies bloody or black stools. Hemoglobin 8.1 today however given the patient's recent value of 7.6 and goal of hemoglobin 8.5 to help minimize symptoms will transfuse. Patient also has persistent neutropenia with ANC of 0.44. Will transfuse with 1 unit of PRBCs that are Leuk-reduced and irradiated. Case discussed with Dr. A[facility] will admit the patient for further management. Medication Reconcilliation Current Medication List: was personally reviewed by me Blood Pressure Screening Patient's blood pressure: Normal blood pressure Consults Time Called: 2023 [facility] Returned Call: 2027 I discussed the patients [facility] He understands the patients condition and agrees to accept the patient. The patient will be further evaluated. Impression Primary Impression: Symptomatic anemia Additional Impression: Neutropenia Critical Care I have personally spent greater than 35 minutes of critical care time in the direct management of this patient. This includes bedside care, interpretation of diagnostic studies, and testing, discussion with consultants, patient, and family members, and other required patient management activities. This 35 minutes is in excess of all separately billable procedures. Scribe Attestation The scribe's documentation has been prepared under my direction and personally reviewed by me in its entirety. I confirm that the note above accurately reflects all work, treatment, procedures, and medical decision making performed by me. Departure Information Dispostion Being Evaluated By Hospitalist Referrals Leo TARANGO (PCP) Patient Instructions [facility] Problem Qualifiers
[2017-05-18 20:56] VITALS: BP 121/62; PULSE 64; TEMP 36.8; O2SAT 97
[2017-05-18 21:10] VITALS: BP 114/65; PULSE 63; TEMP 36.8; O2SAT 97
[2017-05-18] MEDS ORDERED: OPTIRAY 320 IV PRN (21:15)
[2017-05-18] MEDS ORDERED: ACETAMINOPHEN 325 MG TAB PO PRN (21:15)
[2017-05-18] MEDS ORDERED: MoRPHine SULFATE 4 MG/ML 1 ML CARP\\VIAL IV PRN (21:15)
[2017-05-18] MEDS ORDERED: PROCHLORPERAZINE INJ 5 MG in SYRINGE 4 ML IV PRN (21:15)
[2017-05-18] MEDS ORDERED: TRAMADOL HCL 50 MG TAB PO PRN (21:15)
[2017-05-18 21:25] VITALS: BP 115/62; PULSE 62; TEMP 36.9; O2SAT 97
[2017-05-18 21:45] VITALS: BP 123/70; PULSE 67; TEMP 36.8; O2SAT 98
--- NOTE | 2017-05-18 22:27 | DIAGNOSTIC IMAGING REPORT ---
CT OF THE ABDOMEN AND PELVIS WITH CONTRAST CLINICAL HISTORY: Left sided abdominal pain. COMPARISON STUDY: None. TECHNIQUE: Following IV administration of 92 mL of Optiray-320, axial images of the abdomen and pelvis were obtained from the lung bases to the proximal femurs. Images were reviewed in the axial, sagittal, and coronal planes. IV contrast was administered without complication. A dose lowering technique was utilized adhering to the principles of ALARA. CT DOSE: 576.54 mGy.cm FINDINGS: Visualized portions of the lower chest demonstrate mild to moderate cardiomegaly. There is no biliary ductal dilatation status post cholecystectomy. A 9 mm intermediate attenuation inferior right hepatic lobe lesion shown image 37 of 91 is too small to characterize. There is no pancreatic ductal dilatation. No peripancreatic infiltration is present. The size of the spleen is normal. The adrenal glands and kidneys are unremarkable. There is no hydronephrosis. No abdominal or pelvic lymphadenopathy is present. The appendix is normal. Caliber and wall thickness of small and large bowel are normal. There are fat-containing bilateral inguinal hernias as well as a fat-containing umbilical hernia and fat-containing periumbilical hernias. No suspicious osseous lesions are present. Major vasculature of the abdomen and pelvis is patent. There is no hemoperitoneum. No retroperitoneal hematoma is identified. IMPRESSION: 1. No acute process within the abdomen or pelvis. 2. Mild to moderate cardiomegaly. 3. 9 mm intermediate attenuation right hepatic lobe lesion which is too small to characterize. 4. No biliary ductal dilatation status post cholecystectomy. Electronically signed by: Vincent Maldonado M.D. 05/18/2017 10:25 PM Dictated Date/Time: 05/18/2017 10:17 PM
[2017-05-18] MEDS ORDERED: NSS + 20MEQ KCL 1000ML 1,000 ML IV SCH (22:30)
[2017-05-18 22:44] VITALS: BP 116/68; PULSE 69; TEMP 36.7; O2SAT 97
[2017-05-18 22:46] VITALS: Ht 175.3 cm; Wt 105.0 kg
[2017-05-18] MEDS ORDERED: NSS + 20MEQ KCL 1000ML 1,000 ML IV ONE (23:00)
--- NOTE | 2017-05-19 01:31 | HISTORY & PHYSICAL EXAMINATION ---
DATE OF ADMISSION: 05/18/2017 PRIMARY CARE PHYSICIAN: EMELINA Bailey. CHIEF COMPLAINT: Anemia. HISTORY OF PRESENT ILLNESS: History obtained from patient and records. Medical history significant for myelodysplastic syndrome, chronic anemia (baseline hemoglobin of 9), hypertension, BPH, reflux. Recent confinement last April 2017 for symptomatic anemia. Patient transfused 2 units packed RBC. Hemoglobin on discharge was 9.1. Patient recently saw tassel maker from [facility] outpatient a few days ago. Lab work as of 05/14/2017 showed a hemoglobin of 7.6. As per outpatient note, patient was having difficulty Hg maintaining despite Procrit. Neupogen was held to see if this would help maintain hemoglobin. As per outpatient notes, elevated platelet count, RDW, total bilirubin, concern for hemolysis versus PUSHPA as per note . Patient admits to increasing shortness of breath on exertion. No chest pain or cough symptoms. Patient complaining of achy left-sided abdominal pain, no black, no bloody stools, no emesis, no fever, no chills, denies diarrhea/dysuria. Patient complaining of bilateral leg pain, intermittent swelling. At the Emergency Room, hemoglobin noted to be 8.1, 1 unit of packed RBC transfusion started. MEDICAL HISTORY: As above. SURGERIES: Urologic procedures, cholecystectomy. HOME MEDICATIONS: Include Tylenol, vitamin B12, Procrit, Lasix, Lopressor, vitamin B6. ALLERGIES: No known drug allergies. FAMILY HISTORY: Hypertension. PERSONAL AND SOCIAL HISTORY: Nonsmoker. No chronic intake of alcoholic beverages. half-way inmate, -[place]izen [place] ethnicity. REVIEW OF SYSTEMS: As per HPI, all 10 systems reviewed. All other ROS negative. PHYSICAL EXAMINATION: VITAL SIGNS: Blood pressure was noted to be 114/65, pulse 60, RR 18, temperature 36.8, sats 97 on room air. GENERAL: Noted to be comfortable, no respiratory distress. SKIN: Pallor, warm. HEENT: Alopecia. Pale palpebral conjunctivae. No ptosis. Dry buccal mucosa. NECK: No JVD. Supple. No tenderness. CHEST: Clear, no tenderness. HEART: Regular, no murmur. ABDOMEN: Soft, nontender. RECTAL: Intact sphincter, yellow stool, heme negative. EXTREMITIES: No edema, minimal LE tenderness. No gross deformity. NEUROLOGIC: Coherent. No gross focality. LABORATORY DATA: Hemoglobin was noted to be 8.1, hematocrit 34.2, white cell count 2.59, platelets 466. Sodium 136, potassium 3.7, chloride 105, CO2 of 28, BUN 11, creatinine 0.8, glucose 104, total bilirubin was 1.2, direct bilirubin 0.3. Chest x-ray, no acute pathology. CT abdomen and pelvis showed no acute process, cardiomegaly, right hepatic lobe lesion. ASSESSMENT: 1. Symptomatic anemia history of myelodysplastic syndrome acute on chronic anemia slow hemoglobin drop from baseline over the last few weeks question of hemolysis as per recent outpatient Hematology evaluation. 2. Bilateral lower extremity pain rule out DVT PLAN: GMF transfuse packed RBC to maintain hemoglobin greater than 9. Hematology consult RE acute on chronic anemia. The patient known to [facility]. Complete anemia workup. Lower extremity Dopplers rule out DVT DVT prophylaxis, Lovenox subcutaneous. Full code. MTDD
[2017-05-19] MEDS: ENOXAPARIN 40 MG/0.4 ML SYR SQ SCH (06:30)
[2017-05-19 06:43] LABS: HEMATOCRIT 24.6 % (42-52); HEMOGLOBIN 8.3 g/dL (14.0-18.0); MEAN CELL VOLUME 100.4 fL (80-100); MEAN CORPUSCULAR HEMOGLOBIN 33.9 pg (25-34); MEAN CORPUSCULAR HGB CONC 33.7 g/dl (32-36); NUCLEATED RED BLOOD CELL ABS 0.04 K/uL (0-0); PLATELET COUNT 417 K/uL (130-400); RED CELL DISTRIBUTION WIDTH CV 23.5 % (11.5-14.5); RED CELL DISTRIBUTION WIDTH SD 79.6 fL (36.4-46.3); WHITE BLOOD COUNT 2.25 K/uL (4.8-10.8)
--- NOTE | 2017-05-19 07:09 | DIAGNOSTIC IMAGING REPORT ---
BILATERAL LOWER EXTREMITY VENOUS DOPPLER HISTORY: Bilateral leg pain COMPARISON STUDY: None. FINDINGS: There is normal compressibility, flow, and augmentation within the bilateral lower extremity deep venous systems. IMPRESSION: No DVT within the right or left lower extremity. Electronically signed by: Mann Frederick M.D. 05/19/2017 7:07 AM Dictated Date/Time: 05/19/2017 7:07 AM
[2017-05-19 07:10] VITALS: BP 117/71; PULSE 66; TEMP 36.8; O2SAT 98
[2017-05-19] MEDS: METOPROLOL TARTRATE 25 MG TAB PO SCH ×2 (07:30→20:01)
[2017-05-19] MEDS: PYRIDOXINE HCL 50 MG TAB PO SCH (07:31)
[2017-05-19 07:48] LABS: RETIC COUNT % 2.2 % (0.5-2.0)
[2017-05-19 12:14] LABS: HEMATOCRIT 24.1 % (42-52); HEMOGLOBIN 8.1 g/dL (14.0-18.0)
--- NOTE | 2017-05-19 14:15 | ECHOCARDIOGRAM REPORT ---
*NOTICE TO RECEIVING CONSTITUTION PARTY AGENCY This information is strictly Confidential and protected under [place] law. [place] law prohibits you from making any further disclosure of this information unless further disclosure is expressly permitted by the written consent of the person to whom it pertains or is authorized by law. A general authorization for the release of medical or other information is not sufficient for this purpose. Hospital accepts no responsibility if the information is made available to any other person, INCLUDING THE PATIENT. Interpretation Summary * Name: TIRSO RAMOS [id number] Study Date: 05/19/2017 09:53 AM BP: 117/71 mmHg * Patient Location: [id number] HR: 66 * : 1950 (M/d/yyyy) Gender: Male Height: 69 in * Age: 66 yrs Ethnicity: AA Weight: 231 lb * Ordering Physician: Samuel Zuluaga * Referring Physician: Self, Referred * Performed By: Leidy Clinton RDCS * * Reason For Study: SOB W/MINIMAL EXERTION, ANEMIA * BSA: 2.2 m2 * The study was technically adequate. * There is no comparison study available. * -- Conclusions -- * Left ventricular systolic function is normal. * Ejection Fraction = 65-70%. * The left atrium is mildly dilated. * Mild aortic regurgitation. * There is mild mitral regurgitation. * There is mild tricuspid regurgitation. * The estimated systolic PAP is 42mmHg. Procedure Details * A complete two-dimensional transthoracic echocardiogram was performed (2D, M-mode, Doppler and color flow Doppler). Left Ventricle * The left ventricle is normal in size. * There is no thrombus. * There is normal left ventricular wall thickness. * Ejection Fraction = 65-70%. * Left ventricular systolic function is normal. * The left ventricular wall motion is normal. Right Ventricle * The right ventricle is normal size. * The right ventricular systolic function is normal as assessed by tricuspid annular plane systolic excursion (TAPSE) (normal >1.5 cm). Atria * The left atrium is mildly dilated. * Right atrial size is normal. * There is no evidence of atrial septal defect, but resolution does not allow assessment for a patent foramen ovale. Mitral Valve * The mitral valve is normal. * There is no mitral valve stenosis. * There is mild mitral regurgitation. Tricuspid Valve * The tricuspid valve is normal. * There is no tricuspid stenosis. * There is mild tricuspid regurgitation. * The estimated systolic PAP is 42mmHg. Aortic Valve * The aortic valve is trileaflet. * Aortic stenosis is absent. * Mild aortic regurgitation. Pulmonic Valve * The pulmonary valve is inadequately visualized, but the Doppler data is adequate for interpretation. * There is no pulmonic valvular stenosis. * Trace pulmonic valvular regurgitation. Great Vessels * The aortic root and proximal ascending aorta are normal sized. Pericardium/Pleural * There is no pericardial effusion. Great Vessels * Normal inferior vena cava diameter and respiratory variation suggests normal central venous pressure. Left Ventricular Diastolic Function * Pulse wave TDI of the anterior and posterior mitral annulas demonstrates normal LV relaxation MMode 2D Measurements and Calculations IVSd 1.1 cm IVSs 2.0 cm LVIDd 5.5 cm LVIDs 3.5 cm LVPWd 1.1 cm LVPWs 2.1 cm IVS/LVPW 10 FS 37.5 % EDV(Teich) 148.8 ml ESV(Teich) 49.2 ml EF(Teich) 67.0 % EDV(cubed) 168.5 ml ESV(cubed) 41.1 ml EF(cubed) 75.6 % % IVS thick 76.7 % % LVPW thick 79.8 % LV mass(C)d 256.5 grams LV mass(C)dI 116.8 grams/m\S\2 LV mass(C)s 320.8 grams LV mass(C)sI 146.1 grams/m\S\2 SV(Teich) 99.7 ml SI(Teich) 45.4 ml/m\S\2 SV(cubed) 127.4 ml SI(cubed) 58.0 ml/m\S\2 Ao root diam 3.9 cm Ao root area 11.9 cm\S\2 LA dimension 4.2 cm LA/Ao 1.1 LVAd ap4 38.5 cm\S\2 LVLd ap4 9.2 cm EDV(MOD-sp4) 136.9 ml EDV(sp4-el) 137.1 ml LVAs ap4 21.5 cm\S\2 LVLs ap4 7.8 cm ESV(MOD-sp4) 50.6 ml ESV(sp4-el) 50.3 ml EF(MOD-sp4) 63.0 % EF(sp4-el) 63.3 % LVAd ap2 40.0 cm\S\2 LVLd ap2 9.1 cm EDV(MOD-sp2) 150.0 ml EDV(sp2-el) 148.6 ml LVAs ap2 21.0 cm\S\2 LVLs ap2 7.7 cm ESV(MOD-sp2) 51.2 ml ESV(sp2-el) 49.0 ml EF(MOD-sp2) 65.8 % EF(sp2-el) 67.0 % LVLd %diff -0.86 % EDV(MOD-bp) 145.5 ml LVLs %diff -2.14 % ESV(MOD-bp) 51.9 ml EF(MOD-bp) 64.3 % SV(MOD-sp4) 86.3 ml SI(MOD-sp4) 39.3 ml/m\S\2 SV(MOD-sp2) 98.7 ml SI(MOD-sp2) 44.9 ml/m\S\2 SV(MOD-bp) 93.6 ml SI(MOD-bp) 42.6 ml/m\S\2 SV(sp4-el) 86.8 ml SI(sp4-el) 39.5 ml/m\S\2 SV(sp2-el) 99.6 ml SI(sp2-el) 45.3 ml/m\S\2 Doppler Measurements and Calculations MV E max fina 99.2 cm/sec MV A max fina 59.7 cm/sec MV E/A 1.7 MV dec time 0.25 sec Ao V2 max 198.0 cm/sec Ao max PG 15.7 mmHg Ao max PG (full) 8.1 mmHg Ao V2 mean 134.4 cm/sec Ao mean PG 8.3 mmHg Ao mean PG (full) 4.9 mmHg Ao V2 VTI 41.1 cm AI max fina 485.3 cm/sec AI max PG 94.2 mmHg AI dec slope 327.9 cm/sec\S\2 AI P1/2t 433.6 msec LV V1 max PG 7.6 mmHg LV V1 mean PG 3.4 mmHg LV V1 max 138.1 cm/sec LV V1 mean 84.3 cm/sec LV V1 VTI 30.4 cm SV(Ao) 490.8 ml SI(Ao) 223.5 ml/m\S\2 TR max fina 297.2 cm/sec
[2017-05-19 16:04] VITALS: BP 119/73; PULSE 66; TEMP 36.8; O2SAT 95
--- NOTE | 2017-05-19 16:37 | Oncology Consultation ---
Oncology/Heme Consultation Date of Consultation: May 19, 2017. Attending Physician: Samuel Zuluaga M.D. Reason for Consultation: MDS Anemia Exertional dyspnea History of Present Illness Mr. Flores is a 66 year old man with a history of MDS (refractory anemia with ringed sideroblasts) currently managed with Procrit and Neulasta, though he's required less GCSF support of late. His hemoglobin over April was generally 7 -8. He presents with worsening dyspnea on exertion, including shortness of breath climbing stairs. Per the patient, this has been going on and getting slightly worse for several months. He has not had any acute bleeding. He denies any chest pain or palpitations and has no symptoms at rest. He denies any fevers , chills, or sweats. He was given a unit of PRBCs overnight, though his symptoms have not changed significantly. Past Medical/Surgical History Medical Problems: (1) Dyspnea Status: Acute (2) Neutropenia Status: Acute (3) Symptomatic anemia Status: Acute Family History Patient reports no known family medical history. Social History Smoking Status: Never Smoker Housing Status: other Occupation Status: other Allergies Coded Allergies: No Known Allergies (Unverified , 05/18/17) Home Medications Scheduled Cyanocobalamin (Vitamin B-12), 1,000 MCG SQ MONTHLY Epoetin Berto (Procrit), 40,000 UNITS SQ WK Furosemide (Lasix), 20 MG PO DAILY Metoprolol Tartrate (Lopressor) (Lopressor), 25 MG PO BID Pyridoxine (Vitamin B6), 200 MG PO DAILY Tamsulosin Hcl (Flomax), 0.4 MG PO PM Scheduled PRN Acetaminophen Tab (Tylenol), 650 MG PO TID PRN for Current Inpatient Medications Current Inpatient Medications Medications (Trade) Dose Ordered Sig/Patricia Route Start Time Stop Time Status Last Admin Dose Admin Ioversol (Optiray 320) 100 ml UD PRN IV 05/18/17 21:15 05/22/17 21:14 Enoxaparin Sodium (Lovenox Inj) 40 mg Q24H SQ 05/19/17 06:00 06/18/17 05:59 05/19/17 06:30 40 MG Acetaminophen (Tylenol Tab) 650 mg Q4H PRN PO 05/18/17 21:15 06/17/17 21:14 Tramadol HCl (Ultram Tab) not relieved ... Q6H PRN PO 05/18/17 21:15 06/17/17 21:14 Prochlorperazine Edisylate 5 mg/ Syringe 5 ml @ 5 mls/min Q6H PRN IV 05/18/17 21:15 06/17/17 21:14 Metoprolol Tartrate (Lopressor Tab) 25 mg BID PO 05/19/17 08:00 06/18/17 08:59 05/19/17 07:30 25 MG Pyridoxine HCl (Vitamin B-6 Tab) 200 mg DAILY PO 05/19/17 08:00 06/18/17 08:59 05/19/17 07:31 200 MG Tamsulosin HCl (Flomax Cap) 0.4 mg PM PO 05/19/17 20:00 06/18/17 20:59 Cyanocobalamin (Vitamin B-12 Inj) 1,000 mcg 06/07/17 SQ 06/07/17 08:00 06/07/17 08:01 Morphine Sulfate (MoRPHine SULFATE INJ) 4 mg Q6H PRN IV 05/18/17 21:15 06/01/17 21:14 Potassium Chloride/Sodium Chloride 1,000 ml @ 60 mls/hr [id number] ONCE IV 05/18/17 23:00 06/17/17 22:29 05/18/17 23:00 60 MLS/HR Review of Systems Constitutional: + fatigue, No fever, No chills ENT: No unusual epistaxis Respiratory: + dyspnea on exertion, No cough, No shortness of breath Cardiovascular: No chest pain, No orthopnea Abdomen: No pain, No nausea, No vomiting Musculoskeletal: No joint pain, No muscle pain Hematologic / Lymphatic: No abnormal bleeding/bruising, No night sweats Integumentary: No rash Physical Exam Date Time Temp Pulse Resp B/P (MAP) Pulse Ox O2 Delivery O2 Flow Rate FiO2 05/19/17 16:04 36.8 66 18 119/73 (88) 95 Room Air 05/19/17 08:00 Room Air 05/19/17 07:10 36.8 66 18 117/71 (86) 98 Room Air 05/18/17 22:46 Room Air 05/18/17 22:44 36.7 69 18 116/68 (84) 97 Room Air 05/18/17 21:50 36.9 67 18 123/70 98 Room Air 05/18/17 21:45 36.8 67 18 123/70 98 05/18/17 21:25 36.9 62 18 115/62 97 05/18/17 21:10 36.8 63 18 114/65 97 05/18/17 21:00 64 18 119/70 98 Room Air 05/18/17 20:56 36.8 64 16 121/62 97 05/18/17 20:11 64 18 121/62 97 Room Air 05/18/17 18:37 36.3 74 20 142/75 100 Room Air General Appearance: WD/WN, no apparent distress Eyes: sclerae normal (anicteric) Neck: + JVD (with bearing down) Respiratory/Chest: lungs clear Cardiovascular: regular rate, rhythm, no edema Abdomen/GI: non tender, soft, no organomegaly Neurologic/Psych: alert, oriented x 3 Lymphatic: no adenopathy Laboratory Results Last 24 Hours Test 05/18/17 19:25 05/18/17 23:40 05/19/17 05:54 05/19/17 12:01 White Blood Count 2.59 K/uL 2.25 K/uL Red Blood Count 2.36 M/uL 2.45 M/uL Hemoglobin 8.1 g/dL 8.3 g/dL 8.1 g/dL Hematocrit 24.2 % 24.6 % 24.1 % Mean Corpuscular Volume 102.5 fL 100.4 fL Mean Corpuscular Hemoglobin 34.3 pg 33.9 pg Mean Corpuscular Hemoglobin Concent 33.5 g/dl 33.7 g/dl Platelet Count 466 K/uL 417 K/uL Mean Platelet Volume 8.9 fL 10.0 fL RDW Standard Deviation 79.2 fL 79.6 fL RDW Coefficient of Variation 22.8 % 23.5 % Nucleated RBC Absolute Count (auto) 0.05 K/uL 0.04 K/uL Neutrophils % (Manual) 17.1 % 30.5 % Lymphocytes % (Manual) 45.1 % 24.3 % Variant Lymphocytes % (manual) 20.7 % Monocytes % (Manual) 8.1 % 1.7 % Eosinophils % (Manual) 2.7 % 7.0 % Basophils % (Manual) 6.3 % 4.3 % Nucleated Red Blood Cells % 1.8 % 1.7 % Neutrophils # (Manual) 0.44 K/uL 0.69 K/uL Total Absolute Neutrophils 0.44 K/uL 0.69 K/uL Lymphocytes # (Manual) 1.17 K/uL 0.55 K/uL Absolute Variant Lymphocytes 0.54 K/uL Total Absolute Lymphocytes 1.70 K/uL 1.23 K/uL Monocytes # (Manual) 0.21 K/uL 0.04 K/uL Eosinophils # (Manual) 0.07 K/uL 0.16 K/uL Basophils # (Manual) 0.16 K/uL 0.10 K/uL Blood Smear Review Toxic Vacuolation 1+ 1+ Anisocytosis PRESENT PRESENT Ovalocytes 1+ 1+ Schistocytes 1+ Sodium Level 136 mmol/L Potassium Level 3.7 mmol/L Chloride Level 105 mmol/L Carbon Dioxide Level 28 mmol/L Anion Gap 3.0 mmol/L Blood Urea Nitrogen 11 mg/dl Creatinine 0.83 mg/dl Est Creatinine Clear Calc Drug Dose 98.7 ml/min Estimated GFR () 105.5 Estimated GFR (Non- 91.0 BUN/Creatinine Ratio 13.3 Random Glucose 104 mg/dl Calcium Level 8.6 mg/dl Total Bilirubin 1.2 mg/dl Direct Bilirubin 0.3 mg/dl Aspartate Amino Transf (AST/SGOT) 11 U/L Alanine Aminotransferase (ALT/SGPT) 17 U/L Alkaline Phosphatase 52 U/L Total Protein 7.3 gm/dl Albumin 3.8 gm/dl Lipase 171 U/L Urine Color YELLOW Urine Appearance CLEAR Urine pH 6.0 Urine Specific [place] > 1.045 Urine Protein NEG Urine Glucose (UA) NEG Urine Ketones NEG Urine Occult Blood NEG Urine Nitrite NEG Urine Bilirubin NEG Urine Urobilinogen NEG Urine Leukocyte Esterase NEG Metamyelocytes % 0.9 % Myelocytes % 0.9 % Metamyelocytes # 0.02 K/uL Myelocytes # 0.02 K/uL Percent Large Granular Lymphocytes 30.4 % Absolute Large Granular Lymphocytes 0.68 K/uL Large Platelets 1+ Poikilocytosis PRESENT Tear Drop Cells 1+ Absolute Reticulocyte Count 0.05 10^6/uL Percent Reticulocyte Count 2.2 % Iron Level 204 mcg/dl Total Iron Binding Capacity 193 mcg/dl Transferrin 141 mg/dl Transferrin % Saturation 104 % Ferritin 495.5 ng/ml Lactate Dehydrogenase 209 U/L Vitamin B12 Level 633 pg/mL Folate 13.50 ng/mL Assessment & Plan Mr. Flores is a 66 year old man with intermediate risk MDS that is currently managed with Procrit and, as needed, GCSF. His hemoglobin has been a bit lower of late (9 in early April, more like 7-8 more recently), though it is not clear this is the source of his symptoms. I would workup his exertional dyspnea with a cardiology evaluation. His anemia appears to be MDS-related. His LDH is normal and his total bilirubin is just slightly above normal, which is not consistent with brisk intravascular hemolysis. His hematinics are normal and his ferritin is high. His TIBC and transferrin are low, which could be consistent with anemia of chronic inflammation. However, that ferritin is somewhat high. He's only had 3-4 transfusions in his life, so I doubt this is transfusional iron overload. We can often see secondary iron overload in liver disease, which could also be an explanation for his anemia, bilirubinemia, and shortness of breath. I would order an ultrasound of his liver as well. I would not give any additional blood at this time. We may need to increase his Procrit dose as an outpatient, though we can discuss this in the office.
--- NOTE | 2017-05-19 16:41 | Progress Note ---
Internal Med Progress Note Date of Service: May 19, 2017. Provider Documentation: SUBJECTIVE: The patient was seen and examined Admitted with SOB on Exertion with H/O MDS Hb 8.1 -not any worse on admission Received 1 unit of PRBC No symptoms today OBJECTIVE: Vital Signs-as noted below Exam: General-No distress at rest Eyes-normal ENT-normal Neck-supple Lungs-Clear to auscultate bilaterally Heart-Regular,no murmur Abdomen-Benign,no masses,bowel sound present Extremities-No edema Neuro-AAOx3 Lab data as noted below. ASSESSMENT & PLAN: Symptomatic anemia History of myelodysplastic syndrome Acute on chronic anemia Hb is not significantly dropped Received 1 unit of PRBC Discussed with the Computer Systems Manager ECHO; * Left ventricular systolic function is normal. * Ejection Fraction = 65-70%. * The left atrium is mildly dilated. * Mild aortic regurgitation. * There is mild mitral regurgitation. * There is mild tricuspid regurgitation. * The estimated systolic PAP is 42mmHg. Clinically stable Likely discharge tomorrow Bilateral lower extremity pain rule out DVT Lower extremity Doppler :No DVTs DVT prophylaxis, Lovenox subcutaneous. Full code. Vital Signs: Date Time Temp Pulse Resp B/P (MAP) Pulse Ox O2 Delivery O2 Flow Rate FiO2 05/19/17 16:04 36.8 66 18 119/73 (88) 95 Room Air 05/19/17 08:00 Room Air 05/19/17 07:10 36.8 66 18 117/71 (86) 98 Room Air 05/18/17 22:46 Room Air 05/18/17 22:44 36.7 69 18 116/68 (84) 97 Room Air 05/18/17 21:50 36.9 67 18 123/70 98 Room Air 05/18/17 21:45 36.8 67 18 123/70 98 05/18/17 21:25 36.9 62 18 115/62 97 05/18/17 21:10 36.8 63 18 114/65 97 05/18/17 21:00 64 18 119/70 98 Room Air 05/18/17 20:56 36.8 64 16 121/62 97 05/18/17 20:11 64 18 121/62 97 Room Air 05/18/17 18:37 36.3 74 20 142/75 100 Room Air Lab Results: Results Past 24 Hours Test 05/18/17 19:25 05/18/17 23:40 05/19/17 05:54 05/19/17 12:01 Range/Units White Blood Count 2.59 2.25 4.8-10.8 K/uL Red Blood Count 2.36 2.45 4.7-6.1 M/uL Hemoglobin 8.1 8.3 8.1 14.0-18.0 g/dL Hematocrit 24.2 24.6 24.1 42-52 % Mean Corpuscular Volume 102.5 100.4 80-100 fL Mean Corpuscular Hemoglobin 34.3 33.9 25-34 pg Mean Corpuscular Hemoglobin Concent 33.5 33.7 32-36 g/dl Platelet Count 466 417 130-400 K/uL Mean Platelet Volume 8.9 10.0 7.4-10.4 fL RDW Standard Deviation 79.2 79.6 36.4-46.3 fL RDW Coefficient of Variation 22.8 23.5 11.5-14.5 % Nucleated RBC Absolute Count (auto) 0.05 0.04 0-0 K/uL Neutrophils % (Manual) 17.1 30.5 % Lymphocytes % (Manual) 45.1 24.3 % Variant Lymphocytes % (manual) 20.7 % Monocytes % (Manual) 8.1 1.7 % Eosinophils % (Manual) 2.7 7.0 % Basophils % (Manual) 6.3 4.3 0-2 % Nucleated Red Blood Cells % 1.8 1.7 % Neutrophils # (Manual) 0.44 0.69 1.4-6.5 K/uL Total Absolute Neutrophils 0.44 0.69 1.4-6.5 K/uL Lymphocytes # (Manual) 1.17 0.55 1.2-3.4 K/uL Absolute Variant Lymphocytes 0.54 K/uL Total Absolute Lymphocytes 1.70 1.23 1.2-3.4 K/uL Monocytes # (Manual) 0.21 0.04 0.11-0.59 K/uL Eosinophils # (Manual) 0.07 0.16 0-0.5 K/uL Basophils # (Manual) 0.16 0.10 0-0.2 K/uL Blood Smear Review Toxic Vacuolation 1+ 1+ Anisocytosis PRESENT PRESENT Ovalocytes 1+ 1+ Schistocytes 1+ Sodium Level 136 136-145 mmol/L Potassium Level 3.7 3.5-5.1 mmol/L Chloride Level 105 98-107 mmol/L Carbon Dioxide Level 28 21-32 mmol/L Anion Gap 3.0 3-11 mmol/L Blood Urea Nitrogen 11 7-18 mg/dl Creatinine 0.83 0.60-1.40 mg/dl Est Creatinine Clear Calc Drug Dose 98.7 ml/min Estimated GFR () 105.5 Estimated GFR (Non- 91.0 BUN/Creatinine Ratio 13.3 10-20 Random Glucose 104 70-99 mg/dl Calcium Level 8.6 8.5-10.1 mg/dl Total Bilirubin 1.2 0.2-1 mg/dl Direct Bilirubin 0.3 0-0.2 mg/dl Aspartate Amino Transf (AST/SGOT) 11 15-37 U/L Alanine Aminotransferase (ALT/SGPT) 17 12-78 U/L Alkaline Phosphatase 52 45-117 U/L Total Protein 7.3 6.4-8.2 gm/dl Albumin 3.8 3.4-5.0 gm/dl Lipase 171 73-393 U/L Urine Color YELLOW Urine Appearance CLEAR CLEAR Urine pH 6.0 4.5-7.5 Urine Specific [place] > 1.045 1.000-1.030 Urine Protein NEG NEG Urine Glucose (UA) NEG NEG Urine Ketones NEG NEG Urine Occult Blood NEG NEG Urine Nitrite NEG NEG Urine Bilirubin NEG NEG Urine Urobilinogen NEG NEG Urine Leukocyte Esterase NEG NEG Metamyelocytes % 0.9 % Myelocytes % 0.9 % Metamyelocytes # 0.02 0-0 K/uL Myelocytes # 0.02 0-0 K/uL Percent Large Granular Lymphocytes 30.4 % Absolute Large Granular Lymphocytes 0.68 K/uL Large Platelets 1+ Poikilocytosis PRESENT Tear Drop Cells 1+ Absolute Reticulocyte Count 0.05 0.02-0.10 10^6/uL Percent Reticulocyte Count 2.2 0.5-2.0 % Iron Level 204 35-175 mcg/dl Total Iron Binding Capacity 193 250-450 mcg/dl Transferrin 141 200-360 mg/dl Transferrin % Saturation 104 20-50 % Ferritin 495.5 8.0-388.0 ng/ml Lactate Dehydrogenase 209 87-241 U/L Vitamin B12 Level 633 211-911 pg/mL Folate 13.50 >5.38 ng/mL Microbiology Results 05/18/17 MRSA DNA Surveillance Screen - Final, Complete Specimen Negative for MRSA by DNA Probe
[2017-05-19 18:20] LABS: HEMATOCRIT 24.3 % (42-52); HEMOGLOBIN 8.2 g/dL (14.0-18.0)
[2017-05-19] MEDS ORDERED: TAMSULOSIN HCL 0.4 MG CAP PO SCH (20:00)
[2017-05-19 23:53] VITALS: BP 111/66; PULSE 61; TEMP 37; O2SAT 98
[2017-05-20] VITALS: O2SAT 98
[2017-05-20] MEDS: ENOXAPARIN 40 MG/0.4 ML SYR SQ SCH (06:19)
[2017-05-20 07:08] VITALS: BP 114/64; PULSE 62; TEMP 36.9; O2SAT 97
[2017-05-20 07:29] LABS: CALCIUM 8.5 mg/dl (8.5-10.1); CREATININE 0.78 mg/dl (0.60-1.40)
[2017-05-20 07:51] LABS: BASO % 1.3 %; BASO ABS # 0.03 K/uL (0-0.2); EOS % 5.6 %; EOS ABS # 0.13 K/uL (0-0.5); HEMOGLOBIN 8.1 g/dL (14.0-18.0); IG# 0.02 K/uL (0.00-0.02); LYMPH % 65.7 %; LYMPH ABS # 1.53 K/uL (1.2-3.4); MEAN CELL VOLUME 100.8 fL (80-100); MEAN CORPUSCULAR HGB CONC 33.8 g/dl (32-36); MEAN PLATELET VOLUME 9.8 fL (7.4-10.4); MONO % 6.4 %; MONO ABS # 0.15 K/uL (0.11-0.59); NEUT % 20.1 %; NEUT ABS # 0.47 K/uL (1.4-6.5); NUCLEATED RED BLOOD CELL ABS 0.03 K/uL (0-0); PLATELET COUNT 409 K/uL (130-400); RED CELL DISTRIBUTION WIDTH CV 23.3 % (11.5-14.5); RED CELL DISTRIBUTION WIDTH SD 79.6 fL (36.4-46.3); WHITE BLOOD COUNT 2.33 K/uL (4.8-10.8)
[2017-05-20 08:00] VITALS: O2SAT 97
[2017-05-20] MEDS: METOPROLOL TARTRATE 25 MG TAB PO SCH (08:57)
[2017-05-20] MEDS: PYRIDOXINE HCL 50 MG TAB PO SCH (08:57)
--- NOTE | 2017-05-20 12:22 | Progress Note ---
Internal Med Progress Note Date of Service: May 20, 2017. Provider Documentation: SUBJECTIVE: The patient was seen and examined Admitted with SOB on Exertion with H/O MDS Hb 8.1 -not any worse on admission Received 1 unit of PRBC Hb remains stable and denies any symptoms OBJECTIVE: Vital Signs-as noted below Exam: General-No distress at rest Eyes-normal ENT-normal Neck-supple Lungs-Clear to auscultate bilaterally Heart-Regular,no murmur Abdomen-Benign,no masses,bowel sound present Extremities-No edema Neuro-AAOx3 Lab data as noted below. ASSESSMENT & PLAN: Symptomatic anemia History of myelodysplastic syndrome Acute on chronic anemia Hb is not significantly dropped Received 1 unit of PRBC Discussed with the Kitchen Chef -no more transfusion and no other medications are needed now Can be discharged from his perspective ECHO; * Left ventricular systolic function is normal. * Ejection Fraction = 65-70%. * The left atrium is mildly dilated. * Mild aortic regurgitation. * There is mild mitral regurgitation. * There is mild tricuspid regurgitation. * The estimated systolic PAP is 42mmHg. Clinically stable Hb remains stable and denies any symptoms Will discharge today Bilateral lower extremity pain rule out DVT Lower extremity Doppler :No DVTs DVT prophylaxis, Lovenox subcutaneous. Full code. Vital Signs: Date Time Temp Pulse Resp B/P (MAP) Pulse Ox O2 Delivery O2 Flow Rate FiO2 05/20/17 08:00 97 Room Air 05/20/17 07:08 36.9 62 18 114/64 (81) 97 Room Air 05/20/17 00:00 98 Room Air 05/19/17 23:53 37.0 61 16 111/66 (81) 98 Room Air 05/19/17 16:04 36.8 66 18 119/73 (88) 95 Room Air 05/19/17 16:00 Room Air Lab Results: Results Past 24 Hours Test 05/19/17 18:04 05/20/17 06:13 Range/Units Hemoglobin 8.2 8.1 14.0-18.0 g/dL Hematocrit 24.3 24.0 42-52 % White Blood Count 2.33 4.8-10.8 K/uL Red Blood Count 2.38 4.7-6.1 M/uL Mean Corpuscular Volume 100.8 80-100 fL Mean Corpuscular Hemoglobin 34.0 25-34 pg Mean Corpuscular Hemoglobin Concent 33.8 32-36 g/dl Platelet Count 409 130-400 K/uL Mean Platelet Volume 9.8 7.4-10.4 fL Neutrophils (%) (Auto) 20.1 % Lymphocytes (%) (Auto) 65.7 % Monocytes (%) (Auto) 6.4 % Eosinophils (%) (Auto) 5.6 % Basophils (%) (Auto) 1.3 % Neutrophils # (Auto) 0.47 1.4-6.5 K/uL Lymphocytes # (Auto) 1.53 1.2-3.4 K/uL Monocytes # (Auto) 0.15 0.11-0.59 K/uL Eosinophils # (Auto) 0.13 0-0.5 K/uL Basophils # (Auto) 0.03 0-0.2 K/uL RDW Standard Deviation 79.6 36.4-46.3 fL RDW Coefficient of Variation 23.3 11.5-14.5 % Immature Granulocyte % (Auto) 0.9 % Immature Granulocyte # (Auto) 0.02 0.00-0.02 K/uL Nucleated RBC Absolute Count (auto) 0.03 0-0 K/uL Nucleated Red Blood Cells % 1.5 % Toxic Granulation 1+ Toxic Vacuolation 1+ Large Platelets 2+ Giant Platelets 1+ Poikilocytosis PRESENT Anisocytosis PRESENT Sodium Level 137 136-145 mmol/L Potassium Level 4.0 3.5-5.1 mmol/L Chloride Level 106 98-107 mmol/L Carbon Dioxide Level 26 21-32 mmol/L Anion Gap 5.0 3-11 mmol/L Blood Urea Nitrogen 13 7-18 mg/dl Creatinine 0.78 0.60-1.40 mg/dl Est Creatinine Clear Calc Drug Dose 109.8 ml/min Estimated GFR () 108.3 Estimated GFR (Non- 93.4 BUN/Creatinine Ratio 16.8 10-20 Random Glucose 82 70-99 mg/dl Calcium Level 8.5 8.5-10.1 mg/dl Magnesium Level 2.0 1.8-2.4 mg/dl
--- NOTE | 2017-05-20 12:25 | Discharge Instructions ---
Discharge Instructions Date of Service May 20, 2017. Admission Reason for Admission: Symptomatic Anemia Discharge Discharge Diagnosis / Problem: Symptomatic Anemia,MDS,s/p 1 unit PRBC Discharge Goals Goal(s): Prevent Disease Progression Activity Recommendations Activity Limitations: resume your previous activity . Instructions / Follow-Up Instructions / Follow-Up As per [facility] facility Current Hospital Diet Patient's current hospital diet: AHA Diet (Heart Healthy) Discharge Diet Recommended Diet: AHA Diet (Heart Healthy) Pending Studies Studies pending at discharge: no Medical Emergencies . Who to Call and When: Medical Emergencies: If at any time you feel your situation is an emergency, please call 911 immediately. . Non-Emergent Contact Non-Emergency issues call your: Primary Care Provider . . "Provider Documentation" section prepared by Samuel Zuluaga. . VTE Core Measure Inpt VTE Proph given/why not?: SCD's
[2017-05-20 12:49] VITALS: BP 114/64; PULSE 62; TEMP 36.9; O2SAT 97
--- NOTE | 2017-05-21 08:16 | Discharge Summary ---
Discharge Summary Date of Service May 21, 2017. Discharge Summary Admission Date: May 18, 2017 at 20:36 Discharge Date: May 20, 2017 Principal Diagnosis: Symptomatic Anemia,MDS Secondary Diagnoses/Problems: Please see H&P and Hospital progress note Consultations: Hematology Admission Information HPI (per Admitting provider): DATE OF ADMISSION: 05/18/2017 PRIMARY CARE PHYSICIAN: EMELINA Bailey. CHIEF COMPLAINT: Anemia. HISTORY OF PRESENT ILLNESS: History obtained from patient and records. Medical history significant for myelodysplastic syndrome, chronic anemia (baseline hemoglobin of 9), hypertension, BPH, reflux. Recent confinement last April 2017 for symptomatic anemia. Patient transfused 2 units packed RBC. Hemoglobin on discharge was 9.1. Patient recently saw outside sales associate from [facility] outpatient a few days ago. Lab work as of 05/14/2017 showed a hemoglobin of 7.6. As per outpatient note, patient was having difficulty Hg maintaining despite Procrit. Neupogen was held to see if this would help maintain hemoglobin. As per outpatient notes, elevated platelet count, RDW, total bilirubin, concern for hemolysis versus PUSHPA as per note . Patient admits to increasing shortness of breath on exertion. No chest pain or cough symptoms. Patient complaining of achy left-sided abdominal pain, no black, no bloody stools, no emesis, no fever, no chills, denies diarrhea/dysuria. Patient complaining of bilateral leg pain, intermittent swelling. At the Emergency Room, hemoglobin noted to be 8.1, 1 unit of packed RBC transfusion started. MEDICAL HISTORY: As above. SURGERIES: Urologic procedures, cholecystectomy. HOME MEDICATIONS: Include Tylenol, vitamin B12, Procrit, Lasix, Lopressor, vitamin B6. ALLERGIES: No known drug allergies. FAMILY HISTORY: Hypertension. PERSONAL AND SOCIAL HISTORY: Nonsmoker. No chronic intake of alcoholic beverages. longterm inmate, -[place] ethnicity. REVIEW OF SYSTEMS: As per HPI, all 10 systems reviewed. All other ROS negative. PHYSICAL EXAMINATION: VITAL SIGNS: Blood pressure was noted to be 114/65, pulse 60, RR 18, temperature 36.8, sats 97 on room air. GENERAL: Noted to be comfortable, no respiratory distress. SKIN: Pallor, warm. HEENT: Alopecia. Pale palpebral conjunctivae. No ptosis. Dry buccal mucosa. NECK: No JVD. Supple. No tenderness. CHEST: Clear, no tenderness. HEART: Regular, no murmur. ABDOMEN: Soft, nontender. RECTAL: Intact sphincter, yellow stool, heme negative. EXTREMITIES: No edema, minimal LE tenderness. No gross deformity. NEUROLOGIC: Coherent. No gross focality. LABORATORY DATA: Hemoglobin was noted to be 8.1, hematocrit 34.2, white cell count 2.59, platelets 466. Sodium 136, potassium 3.7, chloride 105, CO2 of 28, BUN 11, creatinine 0.8, glucose 104, total bilirubin was 1.2, direct bilirubin 0.3. Chest x-ray, no acute pathology. CT abdomen and pelvis showed no acute process, cardiomegaly, right hepatic lobe lesion. ASSESSMENT: 1. Symptomatic anemia history of myelodysplastic syndrome acute on chronic anemia slow hemoglobin drop from baseline over the last few weeks question of hemolysis as per recent outpatient Hematology evaluation. 2. Bilateral lower extremity pain rule out DVT PLAN: F transfuse packed RBC to maintain hemoglobin greater than 9. Hematology consult RE acute on chronic anemia. The patient known to [facility]. Complete anemia workup. Lower extremity Dopplers rule out DVT DVT prophylaxis, Lovenox subcutaneous. Full code. Hospital Course Symptomatic anemia History of myelodysplastic syndrome Acute on chronic anemia Hb is not significantly dropped Received 1 unit of PRBC Discussed with the Steel Buffer -no more transfusion and no other medications are needed now Can be discharged from his perspective ECHO; * Left ventricular systolic function is normal. * Ejection Fraction = 65-70%. * The left atrium is mildly dilated. * Mild aortic regurgitation. * There is mild mitral regurgitation. * There is mild tricuspid regurgitation. * The estimated systolic PAP is 42mmHg. Clinically stable Hb remains stable and denies any symptoms Will discharge today Bilateral lower extremity pain rule out DVT Lower extremity Doppler :No DVTs DVT prophylaxis, Lovenox subcutaneous. Full code. Total time spent on discharge = 35 minutes This includes examination of the patient, discharge planning, medication reconciliation, and communication with other providers. Discharge Instructions Date of Service May 20, 2017. Admission Reason for Admission: Symptomatic Anemia Discharge Discharge Diagnosis / Problem: Symptomatic Anemia,MDS,s/p 1 unit PRBC Discharge Goals Goal(s): Prevent Disease Progression Activity Recommendations Activity Limitations: resume your previous activity . Instructions / Follow-Up Instructions / Follow-Up As per [facility] facility Current Hospital Diet Patient's current hospital diet: AHA Diet (Heart Healthy) Discharge Diet Recommended Diet: AHA Diet (Heart Healthy) Pending Studies Studies pending at discharge: no Medical Emergencies . Who to Call and When: Medical Emergencies: If at any time you feel your situation is an emergency, please call 911 immediately. . Non-Emergent Contact Non-Emergency issues call your: Primary Care Provider . . "Provider Documentation" section prepared by Samuel Zuluaga. . VTE Core Measure Inpt VTE Proph given/why not?: SCD's <Electronically signed by Samuel Zuluaga M.D.> Signed: 05/20/17 7997 Additional Copies To [facility]
[2017-06-07] MEDS ORDERED: CYANOCOBALAMIN 1000 MCG/ML VIAL SQ SCH (08:00)
== END 2017-05-20 14:38 | disposition home or self-care (01) | DRG 812 ==
LOC: C.EDB 18:36 → C.MS4W 20:36 → ENRESERV 21:30
PROVIDERS: ADMIT Internal Medicine; ATTEND Internal Medicine
DX: D64.9 Anemia, unspecified (principal); D46.9 Myelodysplastic syndrome, unspecified; M79.604 Pain in right leg; M79.605 Pain in left leg; D70.9 Neutropenia, unspecified

== ENCOUNTER 2017-09-03 11:42 | Day surgery (SDC) | payer OTHER ==
[~2017-09-03] VITALS: Ht 175.3 cm; Wt 94.1 kg
[~2017-09-03 11:42] MED LIST changes: +ACET-1693 PO; -ACET325T96 PO; +ATROPINE SULFATE 0.1 MG/ML 5ML SYR IV PRN; +CEFAZOLIN 2000MG IV PUSH 15 ML IV SCH; +EpHEDrine SULFATE INJ 50 MG/ML AMP IV PRN; +FENTANYL CITRATE INJ 50 MCG/1 ML 2 ML VIAL IV PRN; +FOLI1TAB8 PO; +LACTATED RINGER'S 1000ML 1,000 ML IV SCH; +THIA100T11 PO; -[UNRECOGNIZED DRUG - CODE] INJ
--- NOTE | 2017-09-03 12:03 | History and Physical ---
History & Physical Date Sep 03, 2017. History of Present Illness The patient is a 67 year old male with complaints of Past Medical/Surgical History Medical Problems: (1) CHF (congestive heart failure) (2) COPD (chronic obstructive pulmonary disease) (3) MDS (myelodysplastic syndrome) (4) Symptomatic anemia (5) Symptomatic anemia Additional History Hepatic Disease: No Endocrine Disorder: No Kidney Disease: No Hypertension: Yes Heart Disease: Yes Other: anemia Allergies Coded Allergies: Ibuprofen (Verified Allergy, Unknown, UNKNOWN, 08/27/17) Home Medications Scheduled Cyanocobalamin (Vitamin B-12), 1,000 MCG SQ MONTHLY Epoetin Berto (Procrit), 40,000 UNITS SQ WK Folic Acid (Folvite), 1 TAB PO QAM Furosemide (Lasix), 20 MG PO QAM Metoprolol Tartrate (Lopressor) (Lopressor), 25 MG PO BID Pyridoxine (Vitamin B6), 200 MG PO BID Tamsulosin Hcl (Flomax), 0.8 MG PO HS Thiamine Hcl (Vitamin B-1), 100 MG PO QAM Scheduled PRN Acetaminophen Tab (Tylenol), 650 MG PO TID PRN for Physical Examination Skin: warm/dry Eyes: sclerae normal Head: atraumatic Neck: supple Respiratory/Chest: no respiratory distress Cardiovascular: regular rate, rhythm Abdomen / GI: non tender Neurologic/Psych: alert Diagnosis anemia with blasts Plan of Treatment access port placement
[2017-09-03 12:18] VITALS: BP 146/73; PULSE 72; TEMP 36.6; O2SAT 98; Ht 175.3 cm; Wt 94.1 kg
[2017-09-03] MEDS ORDERED: CYAN10005 INJ (12:31)
[2017-09-03] MEDS ORDERED: MIDAZOLAM HCL 1 MG/ML 2ML VIAL ONE ×2 (12:40→14:16)
[2017-09-03] MEDS ORDERED: FENTANYL CITRATE INJ 50 MCG/1 ML 2 ML VIAL ONE (12:41)
[2017-09-03] MEDS ORDERED: ACET-749 PO (13:46)
--- NOTE | 2017-09-03 13:51 | Discharge Instructions ---
Discharge Instructions Date of Service Sep 03, 2017. Visit Reason for Visit: Refractory Anemia With Excess Of Blasts 1 Discharge Discharge Diagnosis / Problem: A-port Discharge Goals Goal(s): Therapeutic intervention Activity Recommendations Activity Limitations: as noted below Shower/Bathe: keep incision dry (for 2 days) Anesthesia . Post Anesthesia Instructions: If you have had General Anesthesia or IV Sedation: * Do not drive today. * Resume driving when surgeon permits. * Do not make important decisions or sign legal documents today. * Call surgeon for: 1. Temperature elevations greater than 101 degrees F. 2. Uncontrollable pain. 3. Excessive bleeding. 4. Persistent nausea and vomiting. 5. Medication intolerance (nausea, vomiting or rash). * For nausea and vomiting use only clear liquids such as: tea, soda, bouillon until nausea subsides, then gradually increase diet as tolerated. * If you have any concerns or questions, call your surgeon's office. If physician is unavailable and it is an emergency, call 911 or go to the nearest emergency room. . Instructions / Follow-Up Instructions / Follow-Up Sutures can be removed in 2 weeks, call the office if there are any concerns about the incision [phone] Diet Recommendations Recommended Home Diet: no limitations Pending Studies Studies pending at discharge: no Medical Emergencies . Who to Call and When: Medical Emergencies: If at any time you feel your situation is an emergency, please call 911 immediately. . Non-Emergent Contact Non-Emergency issues call your: Surgeon Call Non-Emergent contact if: you have a fever, temperature is above 101.5, wound has increased redness . . "Provider Documentation" section prepared by Wayne Abdul. .
[2017-09-03] MEDS ORDERED: PROPOFOL IV EMULSION 10 MG/ML 20 ML VIAL IV ONE ×2 (13:54)
[2017-09-03] MEDS ORDERED: HEPARIN SOD (PORCINE) 1000 UNIT/ML 10 ML VIAL ONE (14:02)
[2017-09-03] MEDS ORDERED: CEFAZOLIN SOD 1 GM VIAL ONE (14:02)
[2017-09-03] MEDS ORDERED: LIDOCAINE HCL 1% 20 ML VIAL ONE (14:02)
[2017-09-03] MEDS ORDERED: THROMBIN FOR SOLN 20000 UNIT KIT ONE (14:02)
[2017-09-03] MEDS ORDERED: LACTATED RINGER'S 1000ML 1,000 ML IV SCH (14:55)
--- NOTE | 2017-09-03 14:58 | [facility] Operative Report ---
Operative Report Operative Date Sep 03, 2017. Pre-Operative Diagnosis ANEMEIA Post-Operative Diagnosis same Procedure(s) Performed placement of A-port left subclavian vein Surgeon Dr. Marie Estimated Blood Loss 10ml Specimens no specimens per surgeon Anesthesia Type MAC Complication(s) none Disposition Recovery Room / PACU I attest to the content of the Intraoperative Record and any orders documented therein. Any exceptions are noted below.
[2017-09-03] MEDS ORDERED: MoRPHine SULFATE 2 MG/ML CARP IV PRN (15:00)
[2017-09-03] MEDS ORDERED: HYDROCODONE/ACETAMIN 5/325MG TAB PO PRN ×3 (15:00)
[2017-09-03] MEDS ORDERED: ONDANSETRON INJ 2 MG/ML 2 ML VIAL IV PRN ×2 (15:00)
--- NOTE | 2017-09-03 15:03 | Anesthesiology Progress Note ---
Anesthesia Post Op Note Date & Time Sep 03, 2017 at 15:03 Vital Signs Pain Intensity: 0 Vital Signs Past 12 Hours Date Time Temp Pulse Resp B/P (MAP) Pulse Ox O2 Delivery O2 Flow Rate FiO2 09/03/17 12:18 36.6 72 18 146/73 (97) 98 Room Air Notes Mental Status: alert / awake / arousable, participated in evaluation Pt Amnestic to Procedure: Yes Nausea / Vomiting: adequately controlled Pain: adequately controlled Airway Patency, RR, SpO2: stable & adequate BP & HR: stable & adequate Hydration State: stable & adequate Anesthetic Complications: no major complications apparent
[2017-09-03 15:25] VITALS: BP 118/71; PULSE 62; TEMP 36.4; O2SAT 98
--- NOTE | 2017-09-03 15:35 | DIAGNOSTIC IMAGING REPORT ---
CHEST ONE VIEW PORTABLE HISTORY: port placement COMPARISON: Chest 05/18/2017. FINDINGS: Interval placement left subclavian Port-A-Cath. The tip terminates in the expected location of the distal SVC. The tubing appears intact. No pneumothorax. The heart is mildly enlarged. The lungs are clear. IMPRESSION: Left Port-A-Cath terminates in the expected location of the distal SVC. No pneumothorax. Electronically signed by: Mann Frederick M.D. 09/03/2017 3:34 PM Dictated Date/Time: 09/03/2017 3:31 PM
[2017-09-03 15:43] VITALS: PULSE 62; TEMP 36.5; O2SAT 99
--- NOTE | 2017-09-03 16:12 | OPERATIVE REPORT ---
DATE OF OPERATION: 09/03/2017 NAME OF OPERATION: Access port placement. PREOPERATIVE DIAGNOSIS: Anemia with blasts. POSTOPERATIVE DIAGNOSIS: Anemia with blasts. STAFF SURGEON: Spike Marie MD ANESTHESIA: 1% plain lidocaine with sedation. PROCEDURE: The patient was brought in the operating room and placed on the operating table in supine position. His upper chest was prepped and draped in usual fashion. Using 1% plain lidocaine, skin and subcutaneous tissue over the left deltopectoral groove were anesthetized. An incision was made carrying dissection down identifying the cephalic vein which was too small to use for placement of the catheter. The patient was placed in Trendelenburg position. Using a puncture technique, the left subclavian vein was localized. Dilator and introducer were passed and these were passed over the wire which had been placed under fluoroscopy. The dilator and wire were then removed. The catheter passed through the introducer. The catheter positioned appropriately in the superior vena cava and then the catheter was secured using 2-0 chromic suture. A pocket was fashioned in the chest wall. The port was attached the catheter, placed into the pocket, and secured using 3-0 Prolene suture. The port was aspirated and flushed with heparinized solution. The pocket was irrigated with antibiotic solution. The subcutaneous tissue was reapproximated using 2-0 chromic suture and the skin reapproximated using 4-0 nylon suture. The patient was transferred to recovery room in stable condition. I attest to the content of the Intraoperative Record and any orders documented therein. Any exception s are noted below.
== END 2017-09-03 16:10 | disposition home or self-care (01) ==
LOC: C.ACU 11:42
PROVIDERS: ATTEND Surgery
DX: D64.9 Anemia, unspecified (principal); D46.9 Myelodysplastic syndrome, unspecified; J44.9 Chronic obstructive pulmonary disease, unspecified; I10 Essential (primary) hypertension

== ENCOUNTER 2017-09-11 20:33 | Inpatient (IN) | payer OTHER ==
[~2017-09-11] VITALS: Ht 175.3 cm; Wt 96.8 kg
[~2017-09-11 20:33] MED LIST changes: +ACET-749 PO; -ATROPINE SULFATE 0.1 MG/ML 5ML SYR IV PRN; -CEFAZOLIN 2000MG IV PUSH 15 ML IV SCH; -CYAN100048 SQ; +CYAN10005 INJ; -EpHEDrine SULFATE INJ 50 MG/ML AMP IV PRN; -FENTANYL CITRATE INJ 50 MCG/1 ML 2 ML VIAL IV PRN; -LACTATED RINGER'S 1000ML 1,000 ML IV SCH
--- NOTE | 2017-09-11 21:07 | EMERGENCY ROOM VISIT NOTE ---
History Report prepared by Sheri: Ranjana Hunt Under the Supervision of: Dr. Britta Almonte M.D. First contact with patient: 20:52 Chief Complaint: ABNORMAL LABS Stated Complaint: BLOOD TRANSFUSION History of Present Illness The patient is a 67 year old male who presents to the Emergency Room with evaluation for persistent general low hemoglobin since yesterday. The patient has a history of myelodysplastic disorder. He recently had a blood transfusion September 05, 2017. He reports having bloody stools Wednesday September 06, 2017, though notes his stools returned to normal. He notes his blood work was done yesterday. His hemoglobin was 4.5 and Hematocrit was 15. He notes that his port in his right upper chest is swollen. The patient resides at [facility]. Source of History: patient Onset: since yesterday Position: other (general ) Quality: other (low hemoglobin) Timing: other (persistent) Note: Notes bloody stools and swelling around port. Review of Systems See HPI for pertinent positives & negatives. A total of 10 systems reviewed and were otherwise negative. Past Medical & Surgical Medical Problems: (1) CHF (congestive heart failure) (2) COPD (chronic obstructive pulmonary disease) (3) MDS (myelodysplastic syndrome) (4) Symptomatic anemia (5) Symptomatic anemia Family History Cancer Social History Smoking Status: Former Smoker Housing Status: other Occupation Status: other Current/Historical Medications Scheduled Cyanocobalamin (Vitamin B-12), 1,000 MCG INJ WK Epoetin Berto (Procrit), 40,000 UNITS SQ WK Filgrastim (Neupogen), 480 MCG SC DAILY Folic Acid (Folvite), 1 TAB PO QAM Furosemide (Lasix), 20 MG PO QAM Metoprolol Tartrate (Lopressor) (Lopressor), 25 MG PO BID Pyridoxine (Vitamin B6), 200 MG PO BID Tamsulosin Hcl (Flomax), 0.8 MG PO HS Thiamine Hcl (Vitamin B-1), 100 MG PO QAM Scheduled PRN Acetaminophen Tab (Tylenol), 650 MG PO TID PRN for Pain Allergies Coded Allergies: Ibuprofen (Verified Allergy, Severe, TONGUE SWELLS, 09/11/17) Physical Exam Vital Signs Date Time Temp Pulse Resp B/P (MAP) Pulse Ox O2 Delivery O2 Flow Rate FiO2 5/4/18 01:15 84 20 141/73 100 Room Air 09/12/17 01:01 84 23 140/69 09/12/17 00:59 37.7 80 20 140/69 100 09/12/17 00:21 91 18 148/57 98 09/12/17 00:17 37.6 91 20 148/57 100 09/12/17 00:01 37.3 93 18 134/90 98 09/12/17 00:01 78 23 134/90 100 09/11/17 23:56 37.3 82 16 137/70 98 09/11/17 23:45 74 21 137/70 100 09/11/17 23:45 37.3 80 20 137/70 100 09/11/17 23:30 85 17 126/66 99 09/11/17 23:29 37.5 86 23 126/66 99 09/11/17 23:29 37.5 80 16 126/66 99 09/11/17 23:15 85 16 134/66 99 09/11/17 23:12 37.7 76 19 134/68 100 09/11/17 23:12 37.7 79 19 134/68 99 09/11/17 23:10 134/68 09/11/17 23:07 139/67 09/11/17 23:06 37.5 82 22 139/67 100 09/11/17 23:02 37.5 81 18 124/53 100 09/11/17 23:01 124/53 09/11/17 23:00 85 16 124/53 100 Room Air 09/11/17 22:00 77 25 123/56 100 Room Air 09/11/17 21:27 82 09/11/17 21:22 85 20 109/71 100 Room Air 09/11/17 20:44 37.1 83 18 141/62 100 Room Air Physical Exam Vital signs reviewed. General: Chronically ill-appearing, in no significant distress. HEENT: No scleral icterus, PERRLA, neck supple. Atraumatic. Cardiovascular: Regular rate and rhythm, no extra sounds. Pulmonary: Clear to auscultation bilaterally, normal work of breathing. Abdomen: Soft, nontender, nondistended, positive bowel sounds. Musculoskeletal: Atraumatic, no peripheral edema. Well healing incision to the left upper anterior chest. Neurologic: Patient awake alert and oriented x 3 Skin: Warm, dry, no rash. Pale. Medical Decision & Procedures Laboratory Results 09/11/17 21:08 Red Blood Count 1.26, Mean Corpuscular Volume 92.1, Mean Corpuscular Hemoglobin 31.7, Mean Corpuscular Hemoglobin Concent 34.5 09/11/17 21:08 Test 09/11/17 21:08 09/12/17 00:00 09/12/17 00:35 09/12/17 00:49 White Blood Count 0.94 K/uL (4.8-10.8) Red Blood Count 1.26 M/uL (4.7-6.1) Hemoglobin 4.0 g/dL (14.0-18.0) Hematocrit 11.6 % (42-52) Mean Corpuscular Volume 92.1 fL (80-100) Mean Corpuscular Hemoglobin 31.7 pg (25-34) Mean Corpuscular Hemoglobin Concent 34.5 g/dl (32-36) Platelet Count 2 K/uL (130-400) RDW Standard Deviation 61.1 fL (36.4-46.3) RDW Coefficient of Variation 18.4 % (11.5-14.5) Neutrophils % (Manual) 2.0 % Lymphocytes % (Manual) 96.0 % Monocytes % (Manual) 2.0 % Neutrophils # (Manual) 0.02 K/uL (1.4-6.5) Total Absolute Neutrophils 0.02 K/uL (1.4-6.5) Lymphocytes # (Manual) 0.90 K/uL (1.2-3.4) Total Absolute Lymphocytes 0.90 K/uL (1.2-3.4) Monocytes # (Manual) 0.02 K/uL (0.11-0.59) Anisocytosis PRESENT Anion Gap 5.0 mmol/L (3-11) Est Creatinine Clear Calc Drug Dose 101.7 ml/min Estimated GFR () 105.8 Estimated GFR (Non- 91.3 BUN/Creatinine Ratio 14.9 (10-20) Calcium Level 8.1 mg/dl (8.5-10.1) Magnesium Level 1.8 mg/dl (1.8-2.4) Total Bilirubin 0.7 mg/dl (0.2-1) Direct Bilirubin 0.3 mg/dl (0-0.2) Aspartate Amino Transf (AST/SGOT) 13 U/L (15-37) Alanine Aminotransferase (ALT/SGPT) 17 U/L (12-78) Alkaline Phosphatase 91 U/L (45-117) Total Protein 6.8 gm/dl (6.4-8.2) Albumin 3.4 gm/dl (3.4-5.0) Thyroid Stimulating Hormone (TSH) 1.300 uIu/ml (0.300-4.500) Urine Color YELLOW Urine Appearance CLEAR (CLEAR) Urine pH 8.0 (4.5-7.5) Urine Specific Boles 1.015 (1.000-1.030) Urine Protein NEG (NEG) Urine Glucose (UA) NEG (NEG) Urine Ketones NEG (NEG) Urine Occult Blood NEG (NEG) Urine Nitrite NEG (NEG) Urine Bilirubin NEG (NEG) Urine Urobilinogen NEG (NEG) Urine Leukocyte Esterase NEG (NEG) Prothrombin Time 11.1 SECONDS (9.0-12.0) Prothromb Time International Ratio 1.1 (0.9-1.1) Activated Partial Thromboplast Time 25.4 SECONDS (21.0-31.0) Partial Thromboplastin Ratio 1.0 Lactic Acid Level 1.9 mmol/L (0.4-2.0) Laboratory results per my review. ED Course 2101: Past medical records reviewed. The patient was evaluated in room B12B. A complete history and physical examination was performed. 2: I reassessed the patient at this time. He consented to a blood transfusion. I discussed the results and treatment plan with the patient. I answered all pertaining questions that he had. He expressed understanding and verbalized agreement. The patient will be further evaluated. 4: [facility] the patient' s case. The patient will be evaluated by the [facility] for further management. Medical Decision Differential diagnosis: Etiologies such as metabolic, infection, hypo/hyperglycemia, electrolyte abnormalities, cardiac sources, intracerebral event, toxicologic, neurologic, as well as others were entertained. This patient was evaluated and appeared to be in no significant distress. Vital signs have remained stable. Laboratory work was drawn and confirms a marked pancytopenia. Patient was typed and crossed for 2 units PRBCs and 2 packs of platelets. He has been consented for blood transfusion. The patient was discussed with the hospitalist service, Dr. Ayon who will evaluate the patient for further management. Medication Reconcilliation Current Medication List: was personally reviewed by me Blood Pressure Screening Patient's blood pressure: Elevated blood pressure monitored by hospitalist Consults Time Called: [id number] Consulting Physician: Dr. Chavarria, [facility] We discussed the patient's case. The patient will be evaluated by the [facility] for further management. Impression Primary Impression: Pancytopenia Critical Care I have personally spent greater than 35 minutes of critical care time in the direct management of this patient. This includes bedside care, interpretation of diagnostic studies, and testing, discussion with consultants, patient, and family members, and other required patient management activities. This 35 minutes is in excess of all separately billable procedures. Scribe Attestation The scribe's documentation has been prepared under my direction and personally reviewed by me in its entirety. I confirm that the note above accurately reflects all work, treatment, procedures, and medical decision making performed by me. Departure Information Dispostion Being Evaluated By Hospitalist Referrals Leo TARANGO (PCP) Patient Instructions My [facility]
[2017-09-11 21:38] LABS: HEMATOCRIT 11.6 % (42-52); MEAN CELL VOLUME 92.1 fL (80-100); MEAN CORPUSCULAR HEMOGLOBIN 31.7 pg (25-34); MEAN CORPUSCULAR HGB CONC 34.5 g/dl (32-36); PLATELET COUNT 2 K/uL (130-400); RED CELL DISTRIBUTION WIDTH CV 18.4 % (11.5-14.5); RED CELL DISTRIBUTION WIDTH SD 61.1 fL (36.4-46.3); WHITE BLOOD COUNT 0.94 K/uL (4.8-10.8)
[2017-09-11] MEDS ORDERED: [UNRECOGNIZED DRUG - CODE] SC (21:40)
[2017-09-11 21:43] LABS: ALBUMIN 3.4 gm/dl (3.4-5.0); CALCIUM 8.1 mg/dl (8.5-10.1); CREATININE 0.81 mg/dl (0.60-1.40); POTASSIUM 3.8 mmol/L (3.5-5.1)
[2017-09-11 21:46] LABS: TOTAL PROTEIN 6.8 gm/dl (6.4-8.2)
[2017-09-11 23:02] VITALS: BP 124/53; PULSE 81; TEMP 37.5; O2SAT 100
[2017-09-11 23:06] VITALS: BP 139/67; PULSE 82; TEMP 37.5; O2SAT 100
[2017-09-11 23:12] VITALS: BP 134/68; PULSE 76; PULSE 79; TEMP 37.7; O2SAT 100; O2SAT 99
[2017-09-11 23:29] VITALS: BP 126/66; PULSE 80; PULSE 86; TEMP 37.5; O2SAT 99
[2017-09-11 23:45] VITALS: BP 137/70; PULSE 80; TEMP 37.3; O2SAT 100
[2017-09-11 23:56] VITALS: BP 137/70; PULSE 82; TEMP 37.3; O2SAT 98
[2017-09-12] VITALS (27 sets, daily range): BP systolic 113–159; BP diastolic 57–90; PULSE 66–97; TEMP 37–38.9; O2SAT 96–100; Ht 175.3 cm; Wt 96.8 kg
[2017-09-12 01:12] LABS: INR 1.1 (0.9-1.1); PTT PATIENT 25.4 SECONDS (21.0-31.0)
[2017-09-12] MEDS ORDERED: TRAMADOL HCL 50 MG TAB PO PRN (01:30)
[2017-09-12] MEDS ORDERED: PROCHLORPERAZINE INJ 5 MG in SYRINGE 4 ML IV PRN (01:30)
[2017-09-12] MEDS ORDERED: ACETAMINOPHEN 325 MG TAB PO ONE (04:37)
[2017-09-12] MEDS: ACETAMINOPHEN 325 MG TAB PO PRN ×3 (04:39→22:31)
--- NOTE | 2017-09-12 07:00 | DIAGNOSTIC IMAGING REPORT ---
CT SCAN OF THE BRAIN WITHOUT IV CONTRAST CLINICAL HISTORY: Headache. COMPARISON STUDY: No priors. TECHNIQUE: Unenhanced axial CT scan of the brain is performed from the vertex to the skull base. A dose lowering technique was utilized adhering to the principles of ALARA. CT DOSE: 537.48 mGy.cm FINDINGS: Brain parenchyma: The brain parenchyma is normal in appearance. There is no hemorrhage, mass effect, or evidence of acute territorial ischemia by CT criteria. Hernandez-white matter is preserved. No extra-axial fluid collection is seen. Ventricles, sulci, cisterns: Normal in configuration. Intracranial vasculature: The visualized intracranial vasculature at the skull base is normal in appearance. Calvarium: Unremarkable. Sinuses and mastoids: The visualized paranasal sinuses are clear. The mastoid air cells are well pneumatized. Orbits: The bony orbits are grossly intact. IMPRESSION: No acute intracranial abnormality. Electronically signed by: Jeffry Archer M.D. 09/12/2017 6:59 AM Dictated Date/Time: 09/12/2017 6:58 AM
--- NOTE | 2017-09-12 07:33 | DIAGNOSTIC IMAGING REPORT ---
CHEST ONE VIEW PORTABLE CLINICAL HISTORY: fever dyspnea COMPARISON STUDY: 09/03/2017 FINDINGS: Mild stable cardia megaly. Mild tortuosity thoracic aorta. Central catheter in superior vena cava. Lungs are clear. IMPRESSION: Mild stable cardiomegaly. The lungs remain clear. The above report was generated using voice recognition software. It may contain grammatical, syntax or spelling errors. Electronically signed by: Elmer Harden M.D. 09/12/2017 7:32 AM Dictated Date/Time: 09/12/2017 7:31 AM
[2017-09-12] MEDS: METOPROLOL TARTRATE 25 MG TAB PO SCH ×2 (07:44→21:16)
[2017-09-12] MEDS: THIAMINE HCL 100 MG TAB PO SCH (07:45)
[2017-09-12] MEDS: PYRIDOXINE HCL 50 MG TAB PO SCH ×2 (07:45→22:06)
--- NOTE | 2017-09-12 11:35 | HISTORY & PHYSICAL EXAMINATION ---
DATE OF ADMISSION: 09/12/2017 PCP : Dr. Us, [facility] CHIEF COMPLAINT: Abnormal blood work. HISTORY OF PRESENT ILLNESS: History is obtained from patient and records. Medical history is significant for myelodysplastic syndrome on chemotherapy, hypertension, BPH, reflux. Recent confinement May 2017 for symptomatic anemia sp PRBC transfusion. Patient is started on Dacogen chemotherapy for myelodysplastic syndrome by oncologist about 3 weeks ago. CBC weekly recommendation. Outpatient hemoglobin yesterday noted to be 4, platelets noted to be 2, white cell count 1.3. Patient sent to the ER. Patient denies chest pain, usual SOB on exertion. Achy headache symptoms. No belly pain, no black, no bloody stools. Usual leg swelling. Denies dysuria. At the Emergency Room, the patient transfused 1 unit packed RBC and 2 units of pheresed platelets. MEDICAL HISTORY: As above. SURGERIES: He has had port placement, urologic procedures, cholecystectomy. HOME MEDICATIONS: Include metoprolol, Flomax, vitamin B1, Tylenol, Procrit, Neupogen, Folvite, Lasix. ALLERGIES: IBUPROFEN. FAMILY HISTORY: There is a family history of hypertension. PERSONAL AND SOCIAL HISTORY: Nonsmoker, no chronic intake of alcoholic beverages, [facility] inmate; was doing construction work prior to incarceration. REVIEW OF SYSTEMS: As per HPI. All 10 systems reviewed. All other ROS negative. PHYSICAL EXAMINATION: VITAL SIGNS: Blood pressure was noted to be 139/60, pulse rate 80, RR 20, temperature 37.7, sats 98 on room air. GENERAL: Noted to be pleasant, no respiratory distress. SKIN: Pallor, warm. HEENT: Partial alopecia, pale palpebral conjunctiva. No ptosis. Moist buccal mucosa. NECK: Supple, short. CHEST: Decreased effort, no tenderness. ABDOMEN: Soft, nontender. HEART: Regular rate and rhythm, no murmur. EXTREMITIES: Minimal LE edema. No tenderness. No gross deformities. NEUROLOGIC:. Coherent. No gross focality. LABS: Hemoglobin was noted to be 4, hematocrit 11.6, white cell count 0.94, platelets 2. Sodium noted to be 140, potassium 3.8, chloride 107, CO2 BUN 12, creatinine 0.8, glucose 101. procalcitonin normal. CT head, no acute pathology. Chest x-ray, cardiomegaly. ASSESSMENT: 1. Worsening pancytopenia. history of myelodysplastic syndrome status post chemotherapy rule out occult infection. 2. Hypertension, stable. PLAN: GMF Transfuse packed RBC to maintain hemoglobin greater than 7, transfuse platelets to maintain above 10,000. Hematology consult RE worsening pancytopenia (Patient known to Dr. Khan) Cultures. Check lactic acid. Hold off antibiotics until definite source found. DVT prophylaxis. SCDs. RE thrombocytopenia Full code. MTDD
--- NOTE | 2017-09-12 11:57 | HEMATOLOGY CONSULTATION ---
DATE OF CONSULTATION: 09/12/2017 This is a hematology consultation. REASON FOR CONSULTATION: Pancytopenia. HISTORY OF PRESENT ILLNESS: Ed is a pleasant 67-year-old -Faro[place] gentleman well known to [facility] currently under my management for high-grade myelodysplasia. Ed had presented to the Emergency Room because of profoundly diminished peripheral blood counts. The Emergency Room physician had contacted me overnight stating this patient also had presented with low-grade fever. Ed claims he has actually felt quite well. He previously received blood transfusion back on 09/05/2017 and shortly thereafter reported bloody stools. Interestingly, his stools have normalized and admits to undergoing colonoscopy about a year and a half ago with no significant pathology revealed. Ed has a longstanding history of myelodysplasia, had actually received 5-azacitidine which unfortunately resulted in adverse reaction and was subsequently discontinued. For the most part he has been managed with transfusional support and Procrit. Jail medical officials noted his transfusion dependence had increased and requested a repeat bone marrow biopsy and aspiration, which was done. 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 It was decided to proceed with Dacogen 43 mg on days 1 through 5, every 28-day cycle. Ed completed his first cycle around 08/29/2017. For the most part chemotherapy was well tolerated but as expected his peripheral blood counts have decreased; however, much greater than I anticipated. On admission, patient's WBC is measured 940, hemoglobin of 4, hematocrit of 11.6 and platelet count of 2. Instructed the Emergency Room physician to proceed with a single-donor plateletpheresis and 2 units of packed RBCs. At the bedside this morning, Ed feels well, has no specific complaints. PAST MEDICAL HISTORY: Again, significant for chronic diastolic heart failure, gastroesophageal reflux disease, hypertension, osteoarthritis, and myelodysplasia. PAST SURGICAL HISTORY: Negative. MEDICATIONS: Prior to admission, vitamin B12 1000 mcg subQ q. weekly, Procrit 40,000 units subQ. q. weekly, folic acid 1 tablet p.o. daily, Lasix 20 mg p.o. q.a.m., metoprolol 25 mg p.o. b.i.d., vitamin B6 200 mg p.o. b.i.d., Flomax 0.8 mg p.o. at bedtime, thiamine 100 mg p.o. daily. ALLERGIES: IBUPROFEN. SOCIAL HISTORY: Patient is incarcerated at local [facility]. Nonsmoker, nondrinker. FAMILY HISTORY: Positive for cancer. REVIEW OF SYSTEMS: CONSTITUTIONAL: Considering the patient's significantly diminished peripheral counts, he is asymptomatic. ER physician reported low-grade fever, no chills or rigors. He is not anorexic or losing weight. SKIN: No rashes or lesions. No history of dermatosis. HEENT: Denies headaches, lightheadedness or dizziness. No acute visual or hearing deficits. No sinus symptoms, sore throat or dysphagia. LYMPH: No history of lymphoproliferative disease. CARDIAC: No significant cardiac history. He denies angina or palpitations. PULMONARY: No history of COPD, he is not short of breath, dyspneic or orthopneic. No cough or hemoptysis. GASTROINTESTINAL: Again, reported bloody stools after transfusion, but otherwise no hematochezia or melena. Presently, he is not nauseated. No abdominal pain. GENITOURINARY: No hematuria, dysuria or urinary incontinence. PSYCHIATRIC: Negative for anxiety, depression or psychoses. ENDOCRINE: Negative for diabetes or thyroid disease. NEUROLOGIC: Negative for seizure, stroke, or migraine headache. HEMATOLOGIC: Positive for pancytopenia attributable to treatment. PHYSICAL EXAMINATION: GENERAL: Very pleasant 67-year-old -[place]aro[place] gentleman, awake, alert and appropriate, no acute distress. VITAL SIGNS: Temperature 37.2, pulse 71, respirations 20, blood pressure 124/67. SKIN: Warm, dry, noncyanotic without petechiae, rash or ecchymosis. HEENT: Head is atraumatic, normocephalic. Eyes: PERRLA, EOMI. Sclerae nonicteric. Nares patent without rhinorrhea or discharge. Throat is clear. Tongue midline. Mucous membranes moist. No buccal lesions or ulcerations. No evidence of thrush. NECK: Supple without JVD or thyromegaly. LYMPH: No cervical, supraclavicular or axillary palpable nodes. HEART: Regular rate and rhythm. No clicks, rubs, murmurs or gallops. LUNGS: Clear to auscultation bilaterally. ABDOMEN: Soft, nontender, nondistended, without palpable hepatosplenomegaly. EXTREMITIES: No calf tenderness or swelling. Pulses and strength are equal in all 4 quadrants. NEUROLOGICALLY: He is awake, alert and oriented x3. Cranial nerves II-XII are intact. LABORATORY DATA: Again, WBC count 940, hemoglobin 4, hematocrit 11.6%, platelet count 2000. Sodium 139, potassium 3.8, chloride 107, carbon dioxide 27, BUN 12, creatinine 0.81. Blood cultures drawn and are pending. IMPRESSION: 1. Pancytopenia attributable to decitabine chemotherapy. 2. Refractory anemia with excess blasts-1. 3. Neutropenic fever. PLAN: Ed is a pleasant 67-year-old -[place] gentleman well known to [facility] currently under my care with high-grade myelodysplastic syndrome. Ed completed his first course of decitabine chemotherapy around 08/29/2017. As expected, his counts decreased; however, to a more significant degree than for spot. At this juncture, I would continue a transfusional support, specifically platelets to maintain platelets above 15,000, goal hemoglobin of 8 grams per deciliter and continue to monitor his neutrophil count. I do not want to incorporate Neupogen as this may result in proliferation of leukemic blasts. However, if he develops bacteremia or other occult infection, we may then be forced to incorporate granulocyte-colony stimulating growth factor. Clinically, Ed feels quite well, tolerating his diet, ambulating ad bernardo and overall asymptomatic. I am conduit cleaner over the weekend and will continue to follow him closely. Thank you very much for allowing me to participate in his care. If you have any questions or concerns, feel free to contact me at any time.
[2017-09-12 12:40] LABS: HEMATOCRIT 17.6 % (42-52); HEMOGLOBIN 6.3 g/dL (14.0-18.0); MEAN CELL VOLUME 90.3 fL (80-100); MEAN CORPUSCULAR HEMOGLOBIN 32.3 pg (25-34); MEAN CORPUSCULAR HGB CONC 35.8 g/dl (32-36); MEAN PLATELET VOLUME 8.6 fL (7.4-10.4); PLATELET COUNT 19 K/uL (130-400); RED CELL DISTRIBUTION WIDTH CV 16.2 % (11.5-14.5); RED CELL DISTRIBUTION WIDTH SD 51.9 fL (36.4-46.3); WHITE BLOOD COUNT 1.11 K/uL (4.8-10.8)
[2017-09-12 12:59] LABS: BASO % 0.9 %; BASO ABS # 0.01 K/uL (0-0.2); EOS % 1.8 %; EOS ABS # 0.02 K/uL (0-0.5); IG# 0.02 K/uL (0.00-0.02); LYMPH ABS # 1.01 K/uL (1.2-3.4); MONO % 1.8 %; MONO ABS # 0.02 K/uL (0.11-0.59); NEUT % 2.7 %; NEUT ABS # 0.03 K/uL (1.4-6.5)
[2017-09-12] MEDS ORDERED: FUROSEMIDE INJ 40 MG in SYRINGE 0 ML IV ONE (13:00)
--- NOTE | 2017-09-12 15:46 | Progress Note ---
Internal Med Progress Note Date of Service: September 12, 2017. Provider Documentation: SUBJECTIVE: The patient was seen and examined on fourth floor. He has history of MDS on hemotherapy He was admitted yesterday with symptomatic anemia and is noted to have severe pancytopenia Has been receiving blood and platelet transfusion Feels better this morning OBJECTIVE: Vital Signs-as noted below Exam: General-no apparent distress at rest Eyes-normal ENT-normal Neck-supple Lungs-clear to auscultate bilaterally Heart-regular Abdomen-benign, nontender, bowel sounds present, no organomegaly Extremities-trace edema bilaterally Neuro-alert, awake and oriented 3 Generally weak but no focal neuro deficit Lab data as noted below. ASSESSMENT & PLAN: Worsening pancytopenia. presented with Symptomatic anemia History of myelodysplastic syndrome status post chemotherapy May have occult infection Transfuse packed RBC to maintain hemoglobin greater than 7, transfuse platelets to maintain above 10,000. Hematology consult RE worsening pancytopenia (Patient known to Dr. Khan)- appreciate Input Cultures. Check lactic acid. Hold off antibiotics until definite source found. Received 4 units of PRBC and 2 units of Platelet Likely to need more Monitor Hypertension, stable. DVT prophylaxis. SCDs. RE thrombocytopenia Full code. DISPOSITION Awaited Vital Signs: Date Time Temp Pulse Resp B/P (MAP) Pulse Ox O2 Delivery O2 Flow Rate FiO2 09/12/17 15:13 38.1 09/12/17 14:51 37.9 73 18 129/65 (86) 97 09/12/17 13:53 38.2 09/12/17 10:50 37.3 66 16 113/70 09/12/17 10:37 37.3 69 16 126/78 09/12/17 10:04 37.3 71 16 122/71 09/12/17 09:41 37.1 70 18 130/73 09/12/17 09:23 37.2 71 18 145/74 100 09/12/17 09:09 37.2 67 18 117/68 09/12/17 08:17 37.2 71 20 124/67 99 09/12/17 08:10 Room Air 09/12/17 07:40 37.0 73 18 128/69 09/12/17 07:03 37.1 74 18 118/67 97 09/12/17 06:11 37.4 09/12/17 04:25 38.5 88 18 126/63 (84) 97 Room Air 09/12/17 02:15 37.6 97 20 159/71 97 Room Air 09/12/17 01:48 37.7 84 20 141/73 100 09/12/17 01:15 84 20 141/73 100 Room Air 09/12/17 01:01 84 23 140/69 09/12/17 00:59 37.7 80 20 140/69 100 09/12/17 00:21 91 18 148/57 98 09/12/17 00:17 37.6 91 20 148/57 100 09/12/17 00:01 37.3 93 18 134/90 98 09/12/17 00:01 78 23 134/90 100 09/11/17 23:56 37.3 82 16 137/70 98 09/11/17 23:45 74 21 137/70 100 09/11/17 23:45 37.3 80 20 137/70 100 09/11/17 23:30 85 17 126/66 99 09/11/17 23:29 37.5 86 23 126/66 99 09/11/17 23:29 37.5 80 16 126/66 99 09/11/17 23:15 85 16 134/66 99 09/11/17 23:12 37.7 76 19 134/68 100 09/11/17 23:12 37.7 79 19 134/68 99 09/11/17 23:10 134/68 09/11/17 23:07 139/67 09/11/17 23:06 37.5 82 22 139/67 100 09/11/17 23:02 37.5 81 18 124/53 100 09/11/17 23:01 124/53 09/11/17 23:00 85 16 124/53 100 Room Air 09/11/17 22:00 77 25 123/56 100 Room Air 09/11/17 21:27 82 09/11/17 21:22 85 20 109/71 100 Room Air 09/11/17 20:44 37.1 83 18 141/62 100 Room Air Lab Results: Results Past 24 Hours Test 09/11/17 21:08 09/12/17 00:00 09/12/17 00:35 09/12/17 00:49 Range/Units White Blood Count 0.94 4.8-10.8 K/uL Red Blood Count 1.26 4.7-6.1 M/uL Hemoglobin 4.0 14.0-18.0 g/dL Hematocrit 11.6 42-52 % Mean Corpuscular Volume 92.1 80-100 fL Mean Corpuscular Hemoglobin 31.7 25-34 pg Mean Corpuscular Hemoglobin Concent 34.5 32-36 g/dl Platelet Count 2 130-400 K/uL RDW Standard Deviation 61.1 36.4-46.3 fL RDW Coefficient of Variation 18.4 11.5-14.5 % Neutrophils % (Manual) 2.0 % Lymphocytes % (Manual) 96.0 % Monocytes % (Manual) 2.0 % Neutrophils # (Manual) 0.02 1.4-6.5 K/uL Total Absolute Neutrophils 0.02 1.4-6.5 K/uL Lymphocytes # (Manual) 0.90 1.2-3.4 K/uL Total Absolute Lymphocytes 0.90 1.2-3.4 K/uL Monocytes # (Manual) 0.02 0.11-0.59 K/uL Anisocytosis PRESENT Sodium Level 139 136-145 mmol/L Potassium Level 3.8 3.5-5.1 mmol/L Chloride Level 107 98-107 mmol/L Carbon Dioxide Level 27 21-32 mmol/L Anion Gap 5.0 3-11 mmol/L Blood Urea Nitrogen 12 7-18 mg/dl Creatinine 0.81 0.60-1.40 mg/dl Est Creatinine Clear Calc Drug Dose 101.7 ml/min Estimated GFR () 105.8 Estimated GFR (Non- 91.3 BUN/Creatinine Ratio 14.9 10-20 Random Glucose 101 70-99 mg/dl Calcium Level 8.1 8.5-10.1 mg/dl Magnesium Level 1.8 1.8-2.4 mg/dl Total Bilirubin 0.7 0.2-1 mg/dl Direct Bilirubin 0.3 0-0.2 mg/dl Aspartate Amino Transf (AST/SGOT) 13 15-37 U/L Alanine Aminotransferase (ALT/SGPT) 17 12-78 U/L Alkaline Phosphatase 91 45-117 U/L Total Protein 6.8 6.4-8.2 gm/dl Albumin 3.4 3.4-5.0 gm/dl Thyroid Stimulating Hormone (TSH) 1.300 0.300-4.500 uIu/ml Urine Color YELLOW Urine Appearance CLEAR CLEAR Urine pH 8.0 4.5-7.5 Urine Specific [place] 1.015 1.000-1.030 Urine Protein NEG NEG Urine Glucose (UA) NEG NEG Urine Ketones NEG NEG Urine Occult Blood NEG NEG Urine Nitrite NEG NEG Urine Bilirubin NEG NEG Urine Urobilinogen NEG NEG Urine Leukocyte Esterase NEG NEG Prothrombin Time 11.1 9.0-12.0 SECONDS Prothromb Time International Ratio 1.1 0.9-1.1 Activated Partial Thromboplast Time 25.4 21.0-31.0 SECONDS Partial Thromboplastin Ratio 1.0 Procalcitonin < 0.05 0-0.5 ng/ml Lactic Acid Level 1.9 0.4-2.0 mmol/L Test 09/12/17 12:19 Range/Units White Blood Count 1.11 4.8-10.8 K/uL Red Blood Count 1.95 4.7-6.1 M/uL Hemoglobin 6.3 14.0-18.0 g/dL Hematocrit 17.6 42-52 % Mean Corpuscular Volume 90.3 80-100 fL Mean Corpuscular Hemoglobin 32.3 25-34 pg Mean Corpuscular Hemoglobin Concent 35.8 32-36 g/dl Platelet Count 19 130-400 K/uL Mean Platelet Volume 8.6 7.4-10.4 fL Neutrophils (%) (Auto) 2.7 % Lymphocytes (%) (Auto) 91.0 % Monocytes (%) (Auto) 1.8 % Eosinophils (%) (Auto) 1.8 % Basophils (%) (Auto) 0.9 % Neutrophils # (Auto) 0.03 1.4-6.5 K/uL Lymphocytes # (Auto) 1.01 1.2-3.4 K/uL Monocytes # (Auto) 0.02 0.11-0.59 K/uL Eosinophils # (Auto) 0.02 0-0.5 K/uL Basophils # (Auto) 0.01 0-0.2 K/uL RDW Standard Deviation 51.9 36.4-46.3 fL RDW Coefficient of Variation 16.2 11.5-14.5 % Immature Granulocyte % (Auto) 1.8 % Immature Granulocyte # (Auto) 0.02 0.00-0.02 K/uL Tear Drop Cells 1+ Ovalocytes 1+ Microbiology Results 09/12/17 Blood Culture, Received Pending 09/12/17 Blood Culture, Received Pending
[2017-09-12] MEDS: TAMSULOSIN HCL 0.4 MG CAP PO SCH (21:15)
[2017-09-13] VITALS (21 sets, daily range): BP systolic 104–160; BP diastolic 56–76; PULSE 57–68; TEMP 36.7–37.9; O2SAT 95–100
[2017-09-13 07:30] LABS: HEMATOCRIT 20.6 % (42-52); HEMOGLOBIN 7.4 g/dL (14.0-18.0); MEAN CORPUSCULAR HEMOGLOBIN 31.6 pg (25-34); MEAN CORPUSCULAR HGB CONC 35.9 g/dl (32-36); PLATELET COUNT 12 K/uL (130-400); RED CELL DISTRIBUTION WIDTH CV 16.3 % (11.5-14.5); RED CELL DISTRIBUTION WIDTH SD 50.2 fL (36.4-46.3); WHITE BLOOD COUNT 0.85 K/uL (4.8-10.8)
[2017-09-13] MEDS: PYRIDOXINE HCL 50 MG TAB PO SCH ×2 (07:52→20:24)
[2017-09-13] MEDS: THIAMINE HCL 100 MG TAB PO SCH (07:52)
[2017-09-13] MEDS: ACETAMINOPHEN 325 MG TAB PO PRN ×2 (07:52→16:58)
[2017-09-13] MEDS: METOPROLOL TARTRATE 25 MG TAB PO SCH ×2 (07:52→20:24)
--- NOTE | 2017-09-13 08:10 | HEME/ONC PROGRESS NOTE ---
DATE: 09/13/2017 DIAGNOSES: 1. Pancytopenia, attributable to decitabine chemotherapy. 2. Refractory anemia with excess blasts-1 (MDS). 3. Neutropenic fever. HISTORY OF PRESENT ILLNESS: Seng Flores is a very pleasant 67-year-old -[place] gentleman well-known to me, currently under care for high-grade myelodysplasia. Ed had recently completed his first cycle of decitabine 43 mg daily x5 days, every 28-day cycle. ED had originally presented to the Emergency Room because of profoundly diminished peripheral blood counts. He has been transfused 2 units of packed RBCs and a single-donor plateletpheresis. His hemoglobin presently is 6.3 and platelet count 19,000. He still remains profoundly neutropenic. He has had no fever or chills overnight. Tolerating his diet and actually feels quite well. He reports no further rectal bleeding. PHYSICAL EXAMINATION: GENERAL: He is in no acute distress. VITAL SIGNS: Temperature 37, pulse 65, respiratory rate 16, blood pressure 153/76. SKIN: Without rash or lesion. HEENT: Oral mucosa without erythema or ulceration. NECK: Supple. HEART: Regular rate and rhythm. LUNGS: Clear to auscultation bilaterally. ABDOMEN: Soft, nontender, nondistended. EXTREMITIES: No clubbing, cyanosis, or edema. NEUROLOGIC: Neurologically, the patient is grossly intact. LABORATORY DATA: WBC count 1110, hemoglobin 6.3, hematocrit 17.6, platelet count 19,000. IMPRESSION: 1. Pancytopenia, attributable to decitabine. 2. Refractory anemia with excess blasts-1 (MDS). 3. Neutropenic fever. PLAN: I saw and examined Ed at bedside again this morning. Clinically, he looks quite well, tolerating his degree of anemia which is not surprising as his average is around 7-8 g per dL. I would proceed with 2 more units of blood and an additional single-donor plateletpheresis today. Once his counts have stabilized from a hematologic standpoint, could be discharged back to the half-way. He is showing no evidence of infection as blood culture results are pending. Ed is not on IV antibiotics, perhaps the addition of prophylactic ciprofloxacin 500 mg p.o. b.i.d. during this period of neutropenia would be reasonable. Thank you for assisting me in the care of this very pleasant gentleman. I will continue to follow him closely during his hospitalization. BENJI
[2017-09-13] MEDS ORDERED: CIPROFLOXACIN 500 MG TAB PO STA (09:58)
--- NOTE | 2017-09-13 13:35 | Progress Note ---
Internal Med Progress Note Date of Service: September 13, 2017. Provider Documentation: SUBJECTIVE: The patient was seen and examined on fourth floor. He has history of MDS on hemotherapy He was admitted yesterday with symptomatic anemia and is noted to have severe pancytopenia Has been receiving blood and platelet transfusion Feels better this morning 09/13 Denies any symptoms Hb and platelets remain low Transfuse more OBJECTIVE: Vital Signs-as noted below Exam: General-no apparent distress at rest Eyes-normal ENT-normal Neck-supple Lungs-clear to auscultate bilaterally Heart-regular Abdomen-benign, nontender, bowel sounds present, no organomegaly Extremities-trace edema bilaterally Neuro-alert, awake and oriented 3 Generally weak but no focal neuro deficit Lab data as noted below. ASSESSMENT & PLAN: Worsening pancytopenia. presented with Symptomatic anemia History of myelodysplastic syndrome status post chemotherapy May have occult infection Transfuse packed RBC to maintain hemoglobin greater than 7, transfuse platelets to maintain above 10,000. Hematology consult RE worsening pancytopenia (Patient known to Dr. Khan)- appreciate Input Cultures. Check lactic acid. Hold off antibiotics until definite source found. Received 4 units of PRBC and 2 units of Platelet Likely to need more Appreciate Hematology recommendation Will give 2 more units of PRBC and 1 platelet pharesis Cipro started If counts are reasonable tomorrow will discharge Hypertension, stable. DVT prophylaxis. SCDs. RE thrombocytopenia Full code. DISPOSITION Likely discharge tomorrow Vital Signs: Date Time Temp Pulse Resp B/P (MAP) Pulse Ox O2 Delivery O2 Flow Rate FiO2 09/13/17 12:14 36.9 57 16 107/68 09/13/17 11:45 37.0 60 18 113/65 98 09/13/17 11:31 36.9 58 16 114/65 09/13/17 11:09 36.7 58 20 104/56 98 0.0 09/13/17 10:24 36.7 09/13/17 08:06 37.9 62 18 125/69 (87) 97 Room Air 09/13/17 08:00 Room Air 09/13/17 03:15 37.0 65 16 153/76 100 09/13/17 02:45 36.7 62 16 130/70 99 09/13/17 02:15 36.7 62 16 125/68 99 09/13/17 02:00 36.9 64 16 125/68 99 09/13/17 01:39 36.9 63 12 125/70 99 09/13/17 01:21 36.9 09/13/17 00:01 Room Air 09/12/17 23:08 38.6 09/12/17 21:17 38.9 74 18 148/73 98 09/12/17 21:15 38.9 74 18 148/73 (98) 98 Room Air 09/12/17 20:15 37.4 77 18 154/84 96 09/12/17 19:45 37.4 72 18 149/74 98 09/12/17 19:16 38.2 75 16 151/78 98 09/12/17 19:02 37.4 76 16 133/70 98 09/12/17 18:45 38.2 80 18 123/67 97 09/12/17 18:05 37.3 09/12/17 16:00 Room Air 09/12/17 15:13 38.1 09/12/17 14:51 37.9 73 18 129/65 (86) 97 09/12/17 13:53 38.2 Lab Results: Results Past 24 Hours Test 09/13/17 06:32 Range/Units White Blood Count 0.85 4.8-10.8 K/uL Red Blood Count 2.34 4.7-6.1 M/uL Hemoglobin 7.4 14.0-18.0 g/dL Hematocrit 20.6 42-52 % Mean Corpuscular Volume 88.0 80-100 fL Mean Corpuscular Hemoglobin 31.6 25-34 pg Mean Corpuscular Hemoglobin Concent 35.9 32-36 g/dl Platelet Count 12 130-400 K/uL RDW Standard Deviation 50.2 36.4-46.3 fL RDW Coefficient of Variation 16.3 11.5-14.5 % Neutrophils % (Manual) 0.9 % Lymphocytes % (Manual) 98.2 % Basophils % (Manual) 0.9 0-2 % Neutrophils # (Manual) 0.01 1.4-6.5 K/uL Total Absolute Neutrophils 0.01 1.4-6.5 K/uL Lymphocytes # (Manual) 0.83 1.2-3.4 K/uL Total Absolute Lymphocytes 0.83 1.2-3.4 K/uL Basophils # (Manual) 0.01 0-0.2 K/uL Platelet Estimate SIGNIFIC DECREASED Red Blood Cell Morphology Unremarkable
[2017-09-13] MEDS ORDERED: FUROSEMIDE INJ 20 MG in SYRINGE 0 ML IV SCH (14:00)
[2017-09-13] MEDS: CIPROFLOXACIN 500 MG TAB PO SCH (20:24)
[2017-09-13] MEDS: TAMSULOSIN HCL 0.4 MG CAP PO SCH (20:24)
[2017-09-14] VITALS (10 sets, daily range): BP systolic 102–155; BP diastolic 54–72; PULSE 59–71; TEMP 37.1–38.1; O2SAT 96–99
[2017-09-14] MEDS: ACETAMINOPHEN 325 MG TAB PO PRN (00:34)
[2017-09-14 06:54] LABS: HEMATOCRIT 23.7 % (42-52); HEMOGLOBIN 8.4 g/dL (14.0-18.0); MEAN CELL VOLUME 87.5 fL (80-100); MEAN CORPUSCULAR HGB CONC 35.4 g/dl (32-36); RED CELL DISTRIBUTION WIDTH CV 15.9 % (11.5-14.5); WHITE BLOOD COUNT 0.86 K/uL (4.8-10.8)
[2017-09-14 07:02] LABS: CALCIUM 8.4 mg/dl (8.5-10.1); CREATININE 0.77 mg/dl (0.60-1.40); PHOSPHORUS 3.1 mg/dl (2.5-4.9)
[2017-09-14 07:06] LABS: PLATELET COUNT 18 K/uL (130-400)
[2017-09-14] MEDS: CIPROFLOXACIN 500 MG TAB PO SCH (09:05)
[2017-09-14] MEDS: PYRIDOXINE HCL 50 MG TAB PO SCH (09:06)
[2017-09-14] MEDS: THIAMINE HCL 100 MG TAB PO SCH (09:06)
[2017-09-14] MEDS: METOPROLOL TARTRATE 25 MG TAB PO SCH (09:06)
--- NOTE | 2017-09-14 10:57 | Progress Note ---
Internal Med Progress Note Date of Service: September 14, 2017. Provider Documentation: SUBJECTIVE: The patient was seen and examined on fourth floor. He has history of MDS on hemotherapy He was admitted yesterday with symptomatic anemia and is noted to have severe pancytopenia Has been receiving blood and platelet transfusion Feels better this morning 09/13 Denies any symptoms Hb and platelets remain low Transfuse more 09/14 Denies any complaints Counts are reasonable Discussed with Dr Khan -will discharge today OBJECTIVE: Vital Signs-as noted below Exam: General-no apparent distress at rest Pale looking Eyes-normal ENT-normal Neck-supple Lungs-clear to auscultate bilaterally Heart-regular Abdomen-benign, nontender, bowel sounds present, no organomegaly Extremities-trace edema bilaterally Neuro-alert, awake and oriented 3 Generally weak but no focal neuro deficit Lab data as noted below. ASSESSMENT & PLAN: Worsening pancytopenia. presented with Symptomatic anemia History of myelodysplastic syndrome status post chemotherapy May have occult infection Transfuse packed RBC to maintain hemoglobin greater than 7, transfuse platelets to maintain above 10,000. Hematology consult RE worsening pancytopenia (Patient known to Dr. Khan)- appreciate Input Cultures. Check lactic acid. Hold off antibiotics until definite source found. Received 4 units of PRBC and 2 units of Platelet Likely to need more Appreciate Hematology recommendation Will give 2 more units of PRBC and 1 platelet pheresis -09/13 Cipro started-Negative Blood cultures and no fever If counts are reasonable tomorrow will discharge Blood counts are reasonable Discussed with Dr Higuera-can be discharged CBC 2 times in a week and report to Dr Higuera Keep usual appointment with Dr Hiugera Hypertension, stable. DVT prophylaxis. SCDs. RE thrombocytopenia Full code. DISPOSITION Discharge today Vital Signs: Date Time Temp Pulse Resp B/P (MAP) Pulse Ox O2 Delivery O2 Flow Rate FiO2 09/14/17 09:04 71 145/69 (94) 09/14/17 08:00 Room Air 09/14/17 08:00 37.1 59 18 102/54 (70) 96 Room Air 09/14/17 01:37 37.2 65 16 117/69 96 09/14/17 01:36 37.2 64 16 117/69 96 09/14/17 01:04 38.1 63 18 124/66 98 09/14/17 00:44 37.6 63 16 126/67 97 09/14/17 00:29 37.7 65 16 127/68 98 09/14/17 00:15 37.5 66 16 123/66 98 09/14/17 00:15 Room Air 09/13/17 23:47 37.3 67 14 120/68 97 09/13/17 22:30 37.3 68 16 125/71 (89) 09/13/17 20:15 37.2 65 16 114/64 (81) 09/13/17 19:59 37.1 67 18 123/66 09/13/17 19:25 37.3 09/13/17 18:30 37.9 09/13/17 16:00 Room Air 09/13/17 15:13 37.1 67 16 144/67 (92) 96 Room Air 09/13/17 13:25 37.1 64 20 127/66 98 09/13/17 12:14 36.9 57 16 107/68 09/13/17 11:45 37.0 60 18 113/65 98 09/13/17 11:31 36.9 58 16 114/65 09/13/17 11:09 36.7 58 20 104/56 98 0.0 Lab Results: Results Past 24 Hours Test 09/14/17 05:50 Range/Units White Blood Count 0.86 4.8-10.8 K/uL Red Blood Count 2.71 4.7-6.1 M/uL Hemoglobin 8.4 14.0-18.0 g/dL Hematocrit 23.7 42-52 % Mean Corpuscular Volume 87.5 80-100 fL Mean Corpuscular Hemoglobin 31.0 25-34 pg Mean Corpuscular Hemoglobin Concent 35.4 32-36 g/dl Platelet Count 18 130-400 K/uL RDW Standard Deviation 49.0 36.4-46.3 fL RDW Coefficient of Variation 15.9 11.5-14.5 % Neutrophils % (Manual) 0.0 % Lymphocytes % (Manual) 100.0 % Neutrophils # (Manual) 0.00 1.4-6.5 K/uL Total Absolute Neutrophils 0.00 1.4-6.5 K/uL Lymphocytes # (Manual) 0.86 1.2-3.4 K/uL Total Absolute Lymphocytes 0.86 1.2-3.4 K/uL Platelet Estimate SIGNIFIC DECREASED Tear Drop Cells OCCASIONAL Sodium Level 137 136-145 mmol/L Potassium Level 4.0 3.5-5.1 mmol/L Chloride Level 108 98-107 mmol/L Carbon Dioxide Level 24 21-32 mmol/L Anion Gap 5.0 3-11 mmol/L Blood Urea Nitrogen 16 7-18 mg/dl Creatinine 0.77 0.60-1.40 mg/dl Est Creatinine Clear Calc Drug Dose 105.4 ml/min Estimated GFR () 108.1 Estimated GFR (Non- 93.2 BUN/Creatinine Ratio 20.8 10-20 Random Glucose 94 70-99 mg/dl Calcium Level 8.4 8.5-10.1 mg/dl Phosphorus Level 3.1 2.5-4.9 mg/dl Magnesium Level 2.1 1.8-2.4 mg/dl
[2017-09-14] MEDS ORDERED: LCTX PO (12:46)
[2017-09-14] MEDS ORDERED: CPR500 PO (12:46)
--- NOTE | 2017-09-14 12:48 | Discharge Instructions ---
Discharge Instructions Date of Service September 14, 2017. Admission Reason for Admission: Pancytopenia Discharge Discharge Diagnosis / Problem: Pancytopenia,MDS Discharge Goals Goal(s): Prevent Disease Progression Activity Recommendations Activity Limitations: resume your previous activity . Instructions / Follow-Up Instructions / Follow-Up Asper the Facility Current Hospital Diet Patient's current hospital diet: AHA Diet (Heart Healthy) Discharge Diet Recommended Diet: AHA Diet (Heart Healthy) Pending Studies Studies pending at discharge: no Medical Emergencies . Who to Call and When: Medical Emergencies: If at any time you feel your situation is an emergency, please call 911 immediately. . Non-Emergent Contact Non-Emergency issues call your: Primary Care Provider . Past History Medical & Surgical History: (1) Symptomatic anemia (2) Pancytopenia (3) MDS (myelodysplastic syndrome) (4) COPD (chronic obstructive pulmonary disease) (5) CHF (congestive heart failure) . "Provider Documentation" section prepared by Samuel Zuluaga. . Barrel Endshaker Adjuster Recommendations Barrel Endshaker Adjuster Recommendations: Check CBC 2 time a week and report to Dr Khan-Oncologist
--- NOTE | 2017-09-14 16:22 | Discharge Summary ---
Discharge Summary Date of Service September 14, 2017. Discharge Summary Admission Date: September 12, 2017 at 01:21 Discharge Date: September 14, 2017 Discharge Disposition: Home Principal Diagnosis: Pancytopenia,MDS s/p 7 units of Blood and 3 units of Platelet transfusion Secondary Diagnoses/Problems: Please see H&P and Hospital Progress note Consultations: Oncology Medication Reconciliation New Medications: Lactobacillus Acidophilus (Lactinex) Tab 2 TAB PO BID, #60 TAB Ciprofloxacin (Ciprofloxacin HCl) 500 Mg Tab 500 MG PO BID for 14 Days, #28 TAB Continued Medications: Acetaminophen Tab (Tylenol) 325 Mg Tab 650 MG PO TID PRN for Pain, TAB Cyanocobalamin (Vitamin B-12) 1,000 Mcg Tab 1000 MCG INJ WK, TAB Epoetin Berto (Procrit) 40,000 [place] 92119 UNITS SQ WK FRIDAY Filgrastim (Neupogen) 480 Mcg/0.8 Ml Inj 480 MCG SC DAILY Folic Acid (Folvite) 1 Mg Tab 1 TAB PO QAM for 90 Days, #90 TAB 1 Refill Furosemide (Lasix) 20 Mg Tab 20 MG PO QAM, TAB Metoprolol Tartrate (Lopressor) (Lopressor) 25 Mg Tab 25 MG PO BID, TAB Pyridoxine (Vitamin B6) 100 Mg Tab 200 MG PO BID, TAB Tamsulosin Hcl (Flomax) 0.4 Mg Cap 0.8 MG PO HS, CAP Thiamine Hcl (Vitamin B-1) 100 Mg Tab 100 MG PO QAM, TAB Admission Information HPI (per Admitting provider): DATE OF ADMISSION: 09/12/2017 PCP : Dr. [facility] CHIEF COMPLAINT: Abnormal blood work. HISTORY OF PRESENT ILLNESS: History is obtained from patient and records. Medical history is significant for myelodysplastic syndrome on chemotherapy, hypertension, BPH, reflux. Recent confinement May 2017 for symptomatic anemia sp PRBC transfusion. Patient is started on Dacogen chemotherapy for myelodysplastic syndrome by oncologist about 3 weeks ago. CBC weekly recommendation. Outpatient hemoglobin yesterday noted to be 4, platelets noted to be 2, white cell count 1.3. Patient sent to the ER. Patient denies chest pain, usual SOB on exertion. Achy headache symptoms. No belly pain, no black, no bloody stools. Usual leg swelling. Denies dysuria. At the Emergency Room, the patient transfused 1 unit packed RBC and 2 units of pheresed platelets. MEDICAL HISTORY: As above. SURGERIES: He has had port placement, urologic procedures, cholecystectomy. HOME MEDICATIONS: Include metoprolol, Flomax, vitamin B1, Tylenol, Procrit, Neupogen, Folvite, Lasix. ALLERGIES: IBUPROFEN. FAMILY HISTORY: There is a family history of hypertension. PERSONAL AND SOCIAL HISTORY: Nonsmoker, no chronic intake of alcoholic beverages, [facility] inmate; was doing construction work prior to incarceration. REVIEW OF SYSTEMS: As per HPI. All 10 systems reviewed. All other ROS negative. PHYSICAL EXAMINATION: VITAL SIGNS: Blood pressure was noted to be 139/60, pulse rate 80, RR 20, temperature 37.7, sats 98 on room air. GENERAL: Noted to be pleasant, no respiratory distress. SKIN: Pallor, warm. HEENT: Partial alopecia, pale palpebral conjunctiva. No ptosis. Moist buccal mucosa. NECK: Supple, short. CHEST: Decreased effort, no tenderness. ABDOMEN: Soft, nontender. HEART: Regular rate and rhythm, no murmur. EXTREMITIES: Minimal LE edema. No tenderness. No gross deformities. NEUROLOGIC:. Coherent. No gross focality. LABS: Hemoglobin was noted to be 4, hematocrit 11.6, white cell count 0.94, platelets 2. Sodium noted to be 140, potassium 3.8, chloride 107, CO2 BUN 12, creatinine 0.8, glucose 101. procalcitonin normal. CT head, no acute pathology. Chest x-ray, cardiomegaly. ASSESSMENT: 1. Worsening pancytopenia. history of myelodysplastic syndrome status post chemotherapy rule out occult infection. 2. Hypertension, stable. PLAN: GMF Transfuse packed RBC to maintain hemoglobin greater than 7, transfuse platelets to maintain above 10,000. Hematology consult RE worsening pancytopenia (Patient known to Dr. Khan) Cultures. Check lactic acid. Hold off antibiotics until definite source found. DVT prophylaxis. SCDs. RE thrombocytopenia Full code. Hospital Course Worsening pancytopenia. presented with Symptomatic anemia History of myelodysplastic syndrome status post chemotherapy May have occult infection Transfuse packed RBC to maintain hemoglobin greater than 7, transfuse platelets to maintain above 10,000. Hematology consult RE worsening pancytopenia (Patient known to Dr. Khan)- appreciate Input Cultures. Check lactic acid. Hold off antibiotics until definite source found. Received 4 units of PRBC and 2 units of Platelet Likely to need more Appreciate Hematology recommendation Will give 2 more units of PRBC and 1 platelet pheresis -09/13 Cipro started-Negative Blood cultures and no fever If counts are reasonable tomorrow will discharge Blood counts are reasonable Discussed with Dr Higuera-can be discharged CBC 2 times in a week and report to Dr Higuera Keep usual appointment with Dr Higuera Hypertension, stable. DVT prophylaxis. SCDs. RE thrombocytopenia Full code. DISPOSITION Discharge today Total time spent on discharge = 35 minutes This includes examination of the patient, discharge planning, medication reconciliation, and communication with other providers. Discharge Instructions Date of Service September 14, 2017. Admission Reason for Admission: Pancytopenia Discharge Discharge Diagnosis / Problem: Pancytopenia,MDS Discharge Goals Goal(s): Prevent Disease Progression Activity Recommendations Activity Limitations: resume your previous activity . Instructions / Follow-Up Instructions / Follow-Up Asper the Facility Current Hospital Diet Patient's current hospital diet: AHA Diet (Heart Healthy) Discharge Diet Recommended Diet: AHA Diet (Heart Healthy) Pending Studies Studies pending at discharge: no Medical Emergencies . Who to Call and When: Medical Emergencies: If at any time you feel your situation is an emergency, please call 911 immediately. . Non-Emergent Contact Non-Emergency issues call your: Primary Care Provider . Past History Medical & Surgical History: (1) Symptomatic anemia (2) Pancytopenia (3) MDS (myelodysplastic syndrome) (4) COPD (chronic obstructive pulmonary disease) (5) CHF (congestive heart failure) . "Provider Documentation" section prepared by Samuel Zuluaga. . Certified Alcohol Drug Counselor Recommendations Certified Alcohol Drug Counselor Recommendations: Check CBC 2 time a week and report to Dr Khan-Oncologist <Electronically signed by Samuel Zuluaga M.D.> Signed: 09/14/17 [id number] Additional Copies To [facility]
[2017-09-17] MEDS ORDERED: CIPR1TAB10 PO (17:38)
[2017-09-17] MEDS ORDERED: LCTX PO (17:41)
[2017-09-17] MEDS ORDERED: CYNI1000 INJ (17:46)
== END 2017-09-14 16:00 | disposition home or self-care (01) | DRG 809 ==
LOC: C.EDB 20:34 → C.4E 09-12 01:21 → ENRESERV 09-12 01:29
PROVIDERS: ADMIT Internal Medicine; ATTEND Internal Medicine
DX: D70.1 Agranulocytosis secondary to cancer chemotherapy (principal); D64.81 Anemia due to antineoplastic chemotherapy; D69.59 Other secondary thrombocytopenia; R50.81 Fever presenting with conditions classified elsewhere; I11.0 Hypertensive heart disease with heart failure; I50.32 Chronic diastolic (congestive) heart failure; T45.1X5A Adverse effect of antineoplastic and immunosuppressive drugs, initial encounter; D46.9 Myelodysplastic syndrome, unspecified; J44.9 Chronic obstructive pulmonary disease, unspecified; N40.0 Benign prostatic hyperplasia without lower urinary tract symptoms; K21.9 Gastro-esophageal reflux disease without esophagitis; Z79.899 Other long term (current) drug therapy; Z87.891 Personal history of nicotine dependence; Z88.6 Allergy status to analgesic agent

== ENCOUNTER → 2017-12-10 | Outpatient (CLI) | payer OTHER ==
[~2017-12-10] MED LIST changes: -ACET-749 PO; -CYAN10005 INJ; +CYNI1000 INJ; +DOXY-369 PO; -FURO20TA PO; +LCTX PO; +LDDP5 TD; +MRLP17X PO; +OPTIRAY 320 IV PRN; +THIA100T10 PO; -THIA100T11 PO; +[UNRECOGNIZED DRUG - CODE] SC
--- NOTE | 2017-12-10 13:21 | DIAGNOSTIC IMAGING REPORT ---
CHEST CT WITH CONTRAST CT DOSE: 734.34 mGy.cm HISTORY: Follow-up study in a patient with consolidation of the superior segment right lower lobe measuring up to 3.[address],F/U STUDY TECHNIQUE: Multiaxial CT images of the chest were performed following the intravenous administration of contrast. A dose lowering technique was utilized adhering to the principles of ALARA. COMPARISON: Chest CT 09/26/2017 FINDINGS: Thyroid is homogeneous. There are no pathologically enlarged lymph nodes of the chest identified. There is mild multichamber cardiac enlargement. Coronary arterial calcifications are noted. No pericardial effusion. Fusiform dilation of the ascending thoracic aorta redemonstrated, 4.8 x 4.6 cm, unchanged from comparison. No thoracic aortic aneurysm identified. The imaged great vessels appear to be patent. Mild tortuosity about the descending thoracic aorta. The opacified pulmonary arterial tree is unremarkable. Bibasilar subsegmental groundglass opacities suggest atelectasis. There is decreased size of the pleural-based consolidation within the medial posterior aspect of the superior segment right lower lobe, now measuring 1.8 x 1.2 cm, previously 3.6 x 1.9 cm on study dated 09/26/2017 the serial also appears more linear in morphology. Mild bibasilar bronchial wall thickening with multifocal areas of mucous plugging. Evaluation of the lung parenchyma is mildly limited secondary to respiratory motion. The previously described 4 mm solid nodule of the left upper lobe is not identified on today's study. The fissural lymph node adjacent to the inferior segment lingula has decreased in size, now measuring 1 mm, previously 3 mm. Pleural-based 4 mm nodule adjacent to the right upper lobe is also resolved. Previously described 3 and 4 mm nodule of the left upper lobe are also not identified. There are no new or enlarging nodules seen. No new focal airspace consolidations are identified. Prior cholecystectomy. No acute process about the imaged upper abdomen. The soft tissues and bones appear unremarkable. Mild chondrocalcinosis about the shoulders. Multilevel spondylitic spurring and intervertebral disc space narrowing about the thoracic spine. IMPRESSION: 1. Decreased size of the pleural-based irregular consolidative opacity of the superior segment right lower lobe now measuring 1.8 x 1.1 cm, previously 3.6 x 1.9 cm on study dated 09/26/2017. This suggests an area of postinflammatory pleural parenchymal scarring. As a precautionary measure, an additional 3 month follow-up CT of the chest may be considered. 2. Resolution of the previously described scattered solid nodules measuring up to 4 mm suggesting resolved infectious or inflammatory process. No new or enlarging pulmonary nodules are identified. 3. Fusiform aneurysmal dilation of the ascending thoracic aorta appears unchanged, 4.8 cm. 4. Cardiomegaly. Electronically signed by: Frank Clifford M.D. 12/10/2017 1:20 PM Dictated Date/Time: 12/10/2017 1:08 PM
== END ==
LOC: C.CTS 12:41
PROVIDERS: ATTEND Family Medicine
DX: R91.8 Other nonspecific abnormal finding of lung field (principal); D46.21 Refractory anemia with excess of blasts 1; I71.2 Thoracic aortic aneurysm, without rupture; I10 Essential (primary) hypertension; I51.7 Cardiomegaly